=== PATIENT | male | born 1960 | race Caucasian/White ===

== ENCOUNTER 2017-01-04 00:54 | Observation (INO) | payer OTHER ==
[2017-01-04 01:17] VITALS: PULSE 92; TEMP 98.3; BMI 22.6
--- NOTE | 2017-01-04 01:34 | PDOC ---
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 Patient states that he was walking across his living room with a cane began to feel dizzy and passed out. States he believes he was unresponsive for several minutes was on the floor crawl to a phone and called 911. Patient states this did not feel like a seizure to him. He had no aura was no tongue biting and no incontinence does not know why he passed out. 01/04/17 04:46 - Physicial Exam PE: 01/04/17 04:43 Vitals: Triage Vital signs reviewed General Appearance: no acute distress, well nourished well developed, Head: Hematoma to left parietal lobe Eyes: Pupils equal reactive round, extraocular movement intact Neck: Supple;No Nucal rigidity Chest Wall: Nontender Cardiac: Regular rate and rhythym, no murmurs, no rubs, no gallops, Lungs: Clear to auscultation bilateral, good air movement bilaterally, Abdomen: Soft, non distended, normal bowel sounds, non tender to palpation Extremities: Full range of motion to all extremities, no cyanosis, clubbing, or edema Skin: Warm and dry, no rashes or lesions, no rash, no petechiae Neuro: AOX3; Cranial Nerves 2-12 grossly intact, left sided hemiparesis, Sensation intact to all extremities, Psych: normal mood, normal affect - Medical Decision Making 01/04/17 04:46 Patient with episode of syncope versus seizure. Unclear. We will CT had labs and reassess CT unchanged from prior lab work grossly unremarkable Will observe for further evaluation of sicca fever seizure
--- NOTE | 2017-01-04 01:51 | PDOC ---
History of Present Illness - General Chief Complaint: Shortness of Breath Stated Complaint: SOB Time Seen by Provider: 01/04/17 01:17 - History of Present Illness Initial Comments: 01/04/17 01:43 56 yo M with h/o seizure disorder, CVA with baseline left sided weakness, and HLD who arrives via EMS with complaint of seizure. States that he was walking around his front room drinking coffee 30 minutes [employer] and lost consciousness. He attributes his LOC to seizures although the event was unwitnessed as patient lives at home alone. Reports hitting back of head on floor and being unconsious for 2-3 minutes. Denies loss of bladder control, but endorses weakness upon regaining consciousness.Endorses right shoulder pain and posterior headache. No h/o of LOC. Endorses SOB. Denies fevers/chills, diaphoresis, dizziness, N/V, vision changes, chest pain, abdominal, or urinary complaints. Denies alcohol intake today. Drinks 2 6 packs per month. Tobacco use 1 PPD for 20+ years. Denies illicit drug use. Requests Keppra. States that he takes Keppra 250 mg PO QD but has ran out of pills today. Past History - Past Medical History Allergies/Adverse Reactions: Allergies Allergy/AdvReac Type Severity Reaction Status Date / Time No Known Allergies Allergy Verified 01/04/17 01:17 Home Medications: Ambulatory Orders Levetiracetam [Keppra -] 750 mg PO BID #60 tablet 07/29/14 Oxycodone HCl 10 mg PO TID PRN #6 tablet MDD 3 01/21/16 Zolpidem Tartrate [Ambien] 10 mg PO HS 01/21/16 Aspirin [ASA -] 81 mg PO DAILY 01/04/17 Anemia: No Asthma: No Cancer: No Cardiac Disorders: No CVA: Yes (LT SIDE WEAKNESS) COPD: No CHF: No Dementia: No Diabetes: No GI Disorders: No Disorders: No HTN: No Hypercholesterolemia: No Liver Disease: No Seizures: Yes Thyroid Disease: No - Surgical History Abdominal Surgery: Yes (UNKNOWN SX.) Appendectomy: No Cardiac Surgery: No Cholecystectomy: No Lung Surgery: No Neurologic Surgery: No Orthopedic Surgery: Yes (Right hand surgery) - Immunization History Immunization Up to Date: No - Suicide/Smoking/Psychosocial Hx Smoking Status: Yes Smoking History: Never smoked Have you smoked in the past 12 months: Yes Number of Cigarettes Smoked Daily: 15 Information on smoking cessation initiated: No 'Breaking Loose' booklet given: 03/25/14 Hx Alcohol Use: No Drug/Substance Use Hx: No Substance Use Type: Alcohol Hx Substance Use Treatment: No Review of Systems - Review of Systems Comments:: 01/04/17 02:25 GENERAL/CONSTITUTIONAL: No fever or chills. No weakness. HEAD, EYES, EARS, NOSE AND THROAT: No change in vision. No ear pain or discharge. No sore throat.- CARDIOVASCULAR: + shortness of breath. No chest pain RESPIRATORY: No cough, wheezing, or hemoptysis. GASTROINTESTINAL: No nausea, vomiting, diarrhea or constipation. GENITOURINARY: No dysuria, frequency, or change in urination. MUSCULOSKELETAL: No joint or muscle swelling or pain. No neck or back pain. SKIN: No rash NEUROLOGIC: +headache and loss of consciousness. No vertigo, or change in strength/sensation. ENDOCRINE: No increased thirst. No abnormal weight change HEMATOLOGIC/LYMPHATIC: No anemia, easy bleeding, or history of blood clots. ALLERGIC/IMMUNOLOGIC: No hives or skin allergy. *Physical Exam - Vital Signs Last Vital Signs Temp Pulse Resp BP Pulse Ox 98.3 F 92 H 20 121/98 96 01/04/17 01:13 01/04/17 01:13 01/04/17 01:13 01/04/17 01:13 01/04/17 01:13 - Physical Exam Comments: 01/04/17 02:26 GENERAL: left sided facial asymmetry. Awake, alert, and fully oriented, in no acute distress. Patient crying on encounter. HEAD: No signs of trauma, normocephalic, atraumatic EYES: PERRLA, EOMI, sclera anicteric, conjunctiva clear ENT: Auricles normal inspection, hearing grossly normal, nares patent, oropharynx clear without exudates. Moist mucosa NECK: Normal ROM, supple, no lymphadenopathy, JVD, or masses LUNGS: No distress, speaks full sentences, clear to auscultation bilaterally HEART: Regular rate and rhythm, normal S1 and S2, no murmurs, rubs or gallops, peripheral pulses normal and equal bilaterally. ABDOMEN: Soft, nontender, normoactive bowel sounds. No guarding, no rebound. No masses EXTREMITIES : Left arm contracted/fixed in flexed and internal rotation position. Normal inspection, Normal range of motion, no edema. No clubbing or cyanosis. Strengh 4/5 BL LE. 4/5 RUE, and 3/5 LUE. NEUROLOGICAL: Cranial nerves II through XII grossly intact. Normal speech. SKIN: Warm, Dry, normal turgor, no rashes or lesions noted. ED Treatment Course - LABORATORY CBC & Chemistry Diagram: 01/04/17 02:00 01/04/17 02:00 - RADIOLOGY Radiology Studies Ordered: Category Date Time Status CXRPORT [CHEST X-RAY PORTABLE*] [RAD] Stat Radiology 01/04/17 01:41 Ordered Medical Decision Making - Medical Decision Making 01/04/17 02:30 56 yo M with h/o seizure disorder, CVA with baseline left sided weakness, and HLD who arrives via EMS with syncopal event 30 minutes [employer] . Patient is poor historian and fall was unwitnessed. Reports hitting back of head on floor and being unconscious for 2-3 minutes. Denies loss of bladder control, but endorses weakness upon regaining consciousness. Now complains of right shoulder pain and posterior headache. No h/o of syncope and patient has poor outpatient follow up. Denies symptoms to suggest vasovagal event. Physical exam with baseline LUE weakness ,and left sided facial asymmetry. Denies alcohol intake today. Consider cardiac cause of syncopal event in setting of abrupt syncope and cardiac risk factors. ED Course: CBC, CMP, UA, Trop, Cardiac Profile, Lactic acid EKG, CXR, R Shoulder RAD, CT HEAD NON CON Keppra 250 mg 01/04/17 04:34 R Shoulder RAD: Absent evidence of dislocation or fracture 01/04/17 04:38 Lactic acid 1.4 01/04/17 04:44 Urine: Trace ketones. 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
[2017-01-04] MEDS ORDERED: levETIRAcetam 250 MG TABLET (FP) PO ONE (02:00)
[2017-01-04] MEDS ORDERED: levETIRAcetam 500 MG TABLET (FP) PO ONE (02:08)
[2017-01-04 02:38] LABS: URINE APPEARANCE SLCLOUDY; URINE BILIRUBIN NEGATIVE (NEGATIVE); URINE BLOOD NEGATIVE (NEGATIVE); URINE GLUCOSE (UA) NEGATIVE (NEGATIVE); URINE KETONE TRACE (NEGATIVE); URINE NITRITE NEGATIVE (NEGATIVE); URINE PROTEIN NEGATIVE (NEGATIVE)
[2017-01-04 03:25] LABS: URINE COLOR YELLOW
[2017-01-04] MEDS ORDERED: KETOROLAC TROMETHAMINE 30 MG/1 ML VIAL IVPUSH ONE (03:38)
[2017-01-04] MEDS ORDERED: KETOROLAC TROMETHAMINE 30 MG/1 ML VIAL ONE (03:40)
[2017-01-04 04:34] LABS: BASOPHIL 1.2 % (0-2.0); EOSINOPHIL 0.3 % (0-4.5); MCH 30.9 pg (25.7-33.7); MCHC 33.4 g/dl (32.0-35.9); MEAN CELL VOLUME 92.7 fl (80-96); NEUTROPHILS 85.7 % (42.8-82.8); PLATELET COUNT 237 K/MM3 (134-434); RDW 13.8 % (11.9-15.9); WHITE BLOOD COUNT 17.5 K/mm3 (4.0-10.0)
[2017-01-04] MEDS ORDERED: SODIUM CHLORIDE 1,000 ML IV STA (04:45)
[2017-01-04 04:47] LABS: INR 0.98 (0.82-1.09); PROTHROMBIN TIME (PATIENT) 11.1 SEC (9.98-11.88)
[2017-01-04 04:58] VITALS: BP 169/99
[2017-01-04 05:31] LABS: ALBUMIN 4.3 g/dl (3.4-5.0); ANION GAP 9 (8-16); BILIRUBIN,TOTAL 0.3 mg/dL (0.2-1.0); CALCIUM 8.6 mg/dL (8.5-10.1); CO2 27 mmol/L (21-32); CREATININE 0.9 mg/dL (0.7-1.3); GLUCOSE,RANDOM 101 mg/dL (74-106); SGPT/ALT 32 U/L (12-78); TOT PROT 7.8 g/dl (6.4-8.2)
[2017-01-04 05:34] LABS: ALK PHOS 92 U/L (45-117)
[2017-01-04 05:39] LABS: SGOT/AST 20 U/L (15-37)
[2017-01-04 05:40] LABS: CPK 87 IU/L (39-308); TROPONIN I < 0.02 ng/ml (0.00-0.05)
[2017-01-04] MEDS ORDERED: NICOTINE 7 MG/24 HOURS TOPICAL PATCH TD ONE (05:58)
[2017-01-04] MEDS ORDERED: ACETAMINOPHEN 325 MG TABLET (FP) PO PRN (06:01)
[2017-01-04] MEDS ORDERED: NICOTINE 14 MG/24 HOURS TOPICAL PATCH TD ONE (06:10)
--- NOTE | 2017-01-04 07:15 | PDOC ---
*Physical Exam - Vital Signs Last Vital Signs Temp Pulse Resp BP Pulse Ox 98.3 F 92 H 20 169/99 96 01/04/17 01:13 01/04/17 01:13 01/04/17 01:13 01/04/17 04:49 01/04/17 05:13 ED Treatment Course - LABORATORY CBC & Chemistry Diagram: 01/04/17 08:20 01/04/17 08:20 - ADDITIONAL ORDERS Additional order review: Laboratory Results 01/04/17 01/04/17 01/04/17 02:20 02:00 02:00 PT with INR INR Sodium Potassium Chloride Carbon Dioxide Anion Gap BUN Creatinine Creat Clearance w eGFR Random Glucose Lactic Acid 1.4 Calcium Total Bilirubin AST ALT Alkaline Phosphatase Creatine Kinase Troponin I B-Natriuretic Peptide 35.04 Total Protein Albumin Urine Color Yellow Urine Appearance Slcloudy Urine pH 5.0 Ur Specific [place] 1.024 Urine Protein Negative Urine Glucose (UA) Negative Urine Ketones Trace H Urine Blood Negative Urine Nitrite Negative Urine Bilirubin Negative Urine Urobilinogen 2.0 01/04/17 01/04/17 01/04/17 02:00 02:00 02:00 PT with INR 11.10 INR 0.98 Sodium 140 Potassium 4.1 D Chloride 104 Carbon Dioxide 27 Anion Gap 9 BUN 9 D Creatinine 0.9 D Creat Clearance w eGFR > 60 Random Glucose 101 Lactic Acid Calcium 8.6 Total Bilirubin 0.3 D AST 20 D ALT 32 Alkaline Phosphatase 92 Creatine Kinase 87 Troponin I < 0.02 B-Natriuretic Peptide Total Protein 7.8 Albumin 4.3 Urine Color Urine Appearance Urine pH Ur Specific [place] Urine Protein Urine Glucose (UA) Urine Ketones Urine Blood Urine Nitrite Urine Bilirubin Urine Urobilinogen 01/04/17 02:00 RBC 4.88 MCV 92.7 MCHC 33.4 RDW 13.8 MPV 10.0 D Neutrophils % 85.7 H D Lymphocytes % 7.5 L D Monocytes % 5.3 Eosinophils % 0.3 D Basophils % 1.2 - Medications Given in the ED: ED Medications Discontinued Medications Generic Name Dose Route Start Last Admin Trade Name Freq PRN Reason Stop Dose Admin Sodium Chloride 1,000 mls @ 1,000 mls/hr 01/04/17 04:45 01/04/17 04:49 Normal Saline - IV 01/04/17 05:44 1,000 mls/hr ASDIR STA Administration Ketorolac Tromethamine 30 mg 01/04/17 03:38 01/04/17 03:44 Toradol Injection - IVPUSH 01/04/17 03:39 30 mg ONCE ONE Administration Levetiracetam 250 mg 01/04/17 02:00 01/04/17 02:08 Keppra - PO 01/04/17 02:01 250 mg ONCE ONE Administration Nicotine 7 mg 01/04/17 05:58 01/04/17 06:16 Nicoderm Patch - TD 01/04/17 05:59 Not Given ONCE ONE Nicotine 14 mg 01/04/17 06:10 01/04/17 06:16 Nicoderm Patch - TD 01/04/17 06:11 14 mg ONCE ONE Administration Medical Decision Making - Medical Decision Making 01/04/17 07:11 Patient signed out by Dr. Patel (Resident) and Dr. Vale (Attending). Patient is a 56 y.o. male who had an unwitnessed syncopal episode at home. Patient to be admitted for further evaluation, awaiting return of hospitalist page. 01/04/17 07:34 Patient admitted for observation to Dr. Rehman however patient stated he wished to leave AMA. Patient counseled extensively on risks and benefits of discharge including the risk of repeat falls and possible associated head trauma /LOC. Patient declined physical examination and discharged AMA. *DC/Admit/Observation/Transfer Diagnosis at time of Disposition: Syncope - Discharge Dispostion Disposition: AGAINST MEDICAL ADVICE Condition at time of disposition: Fair
[2017-01-04 08:40] LABS: BASOPHIL 0.8 % (0-2.0); EOSINOPHIL 1.5 % (0-4.5); MCH 30.4 pg (25.7-33.7); MCHC 32.6 g/dl (32.0-35.9); MEAN CELL VOLUME 93.2 fl (80-96); MEAN PLT VOLUME 8.9 fl (7.5-11.1); NEUTROPHILS 70.5 % (42.8-82.8); PLATELET COUNT 229 K/MM3 (134-434)
[2017-01-04 08:57] LABS: ALBUMIN 4.2 g/dl (3.4-5.0); ANION GAP 4 (8-16); BILIRUBIN,TOTAL 0.4 mg/dL (0.2-1.0); CALCIUM 8.5 mg/dL (8.5-10.1); CO2 31 mmol/L (21-32); GLUCOSE,RANDOM 72 mg/dL (74-106); MAGNESIUM 2.2 mg/dL (1.8-2.4); PHOSPHOROUS 4.1 mg/dL (2.5-4.9); SGOT/AST 11 U/L (15-37); SGPT/ALT 29 U/L (12-78); TOT PROT 7.4 g/dl (6.4-8.2)
[2017-01-04 09:05] LABS: ALK PHOS 89 U/L (45-117); THYROID STIMULATING HORMONE 1.51 uIU/ml (0.358-3.74); TROPONIN I < 0.02 ng/ml (0.00-0.05)
[2017-01-04 09:19] LABS: URINE LEUK ESTERASE Negative (NEGATIVE)
[2017-01-04] MEDS ORDERED: levETIRAcetam 250 MG TABLET (FP) PO SCH (10:00)
--- NOTE | 2017-01-04 14:14 | EKG ---
Test Reason : Blood Pressure : / mmHG Vent. Rate : 079 BPM Atrial Rate : 079 BPM P-R Int : 146 ms QRS Dur : 094 ms QT Int : 380 ms P-R-T Axes : 061 054 052 degrees QTc Int : 435 ms NORMAL SINUS RHYTHM NORMAL ECG WHEN COMPARED WITH ECG OF 29-JUL-2014 12:16, NO SIGNIFICANT CHANGE WAS FOUND REPEAT EKG IF CLINICALLY INDICATED Confirmed by BETSY GALLOWAY MD ([id number]) on 01/04/2017 2:14:25 PM Referred By: Confirmed By:BETSY GALLOWAY MD
--- NOTE | 2017-01-04 16:43 | HOSP ---
Subjective - Review of Symptoms Events since last encounter: Patient was placed on Observation by the Night resident, patient signed AMA prior being seen by anybody from the group. Patient signed AMA from the ED. department. Physical Examination Vital Signs: Vital Signs Temperature 98.3 F 01/04/17 01:13 Pulse Rate 92 H 01/04/17 01:13 Respiratory Rate 20 01/04/17 01:13 Blood Pressure 169/99 01/04/17 04:49 O2 Sat by Pulse Oximetry (%) 96 01/04/17 05:13 Labs: CBC, BMP 01/04/17 08:20 01/04/17 08:20
== END 2017-01-04 08:36 | disposition left against medical advice (07) ==
LOC: JER 00:54 → JERBED 07:32
PROVIDERS: ADMIT Internal Medicine; ATTEND Internal Medicine
PROC: 3E0333Z Introduction of Anti-inflammatory into Peripheral Vein, Percutaneous Approach (ICD-10-PCS; principal; 2017-01-04)
PROC: 3E0337Z Introduction of Electrolytic and Water Balance Substance into Peripheral Vein, Percutaneous Approach (ICD-10-PCS; 2017-01-04)
DX: R55 Syncope and collapse (principal); G40.909 Epilepsy, unspecified, not intractable, without status epilepticus; I69.351 Hemiplegia and hemiparesis following cerebral infarction affecting right dominant side; F17.210 Nicotine dependence, cigarettes, uncomplicated; E78.5 Hyperlipidemia, unspecified; Z91.14 Patient's other noncompliance with medication regimen
CPT/HCPCS: 36415; 70450-TC; 71010-TC; 73030-TC-RT; 80053; 81003; 82550; 83605; 83735; 83880; 84100; 84439; 84443; 84484; 85025; 85610; 93005; 93010; 96361; 96374; 99283-25; G0378

== ENCOUNTER 2017-01-06 10:30 | Emergency (ER) | payer OTHER ==
[2017-01-06 10:43] VITALS: TEMP 98.2; BMI 25.8
[2017-01-06] MEDS ORDERED: levETIRAcetam 500 MG TABLET (FP) PO ONE ×2 (13:00→13:02)
--- NOTE | 2017-01-06 13:32 | PDOC ---
History of Present Illness - General Chief Complaint: Lightheaded Stated Complaint: RX REFILL Time Seen by Provider: 01/06/17 12:41 History Source: Patient Exam Limitations: No Limitations - History of Present Illness Initial Comments: 01/06/17 13:28 56-year-old male with history of left CVA residual and seizure activity presents to the ED for refills of his Keppra. Patient states on Tuesday he was seen here since he had a syncopal episode but signed out AMA but was not given a prescription for his Keppra's was not had it since Tuesday. Patient states is followed by Dr. Colette Robin at [facility] and has an appointment with her. patient currently has no complaints including headache, visual changes, lightheadedness, chest pain, shortness of breath, or nausea. Associated Symptoms: reports: denies symptoms Past History - Travel Traveled outside of the country in the last 30 days: No - Past Medical History Allergies/Adverse Reactions: Allergies Allergy/AdvReac Type Severity Reaction Status Date / Time No Known Allergies Allergy Verified 01/06/17 10:44 Home Medications: Ambulatory Orders Levetiracetam [Keppra -] 750 mg PO BID #60 tablet 07/29/14 Aspirin [ASA -] 81 mg PO DAILY 01/04/17 Anemia: No Asthma: No Cancer: No Cardiac Disorders: No CVA: Yes (LT SIDE WEAKNESS) COPD: No CHF: No Dementia: No Diabetes: No GI Disorders: No Disorders: No HTN: No Hypercholesterolemia: No Liver Disease: No Seizures: Yes Thyroid Disease: No - Surgical History Abdominal Surgery: Yes (UNKNOWN SX.) Appendectomy: No Cardiac Surgery: No Cholecystectomy: No Lung Surgery: No Neurologic Surgery: No Orthopedic Surgery: Yes (Right hand surgery) - Immunization History Immunization Up to Date: No - Suicide/Smoking/Psychosocial Hx Smoking Status: Yes Smoking History: Current every day smoker Have you smoked in the past 12 months: Yes Number of Cigarettes Smoked Daily: 10 Information on smoking cessation initiated: No 'Breaking Loose' booklet given: 03/25/14 Hx Alcohol Use: No Drug/Substance Use Hx: No Substance Use Type: Alcohol Hx Substance Use Treatment: No Patient Lives Alone: Yes Lives with/in: lives alone Review of Systems - Review of Systems Able to Perform ROS?: Yes Constitutional: No: Symptoms Reported HEENTM: No: Symptoms Reported Respiratory: No: Symptoms reported Cardiac (ROS): No: Symptoms Reported ABD/GI: No: Symptoms Reported : No: Symptoms Reported Musculoskeletal: No: Symptoms Reported Integumentary: No: Symptoms Reported Neurological: No: Symptoms reported *Physical Exam - Vital Signs Last Vital Signs Temp Pulse Resp BP Pulse Ox 98.2 F 80 18 157/88 98 01/06/17 10:41 01/06/17 10:41 01/06/17 10:41 01/06/17 10:41 01/06/17 10:41 - Physical Exam General Appearance: Yes: Nourished, Appropriately Dressed. No: Apparent Distress HEENT: positive: CLIF Neck: positive: Supple. negative: Tender, Decreased range of motion Respiratory/Chest: positive: Lungs Clear, Normal Breath Sounds. negative: Chest Tender, Respiratory Distress, Accessory Muscle Use Cardiovascular: positive: Regular Rhythm, Regular Rate. negative: Murmur Gastrointestinal/Abdominal: positive: Soft. negative: Tenderness Extremity: negative: Pedal Edema Integumentary: positive: Normal Color, Dry, Warm Neurologic: positive: Normal Mood/Affect, Motor Strength 5/5 (ambulatory with cane) ED Treatment Course - Medications Given in the ED: ED Medications Discontinued Medications Generic Name Dose Route Start Last Admin Trade Name Freq PRN Reason Stop Dose Admin Levetiracetam 1,000 mg 01/06/17 13:00 01/06/17 13:09 Keppra - PO 01/06/17 13:01 1,000 mg ONCE ONE Administration Medical Decision Making - Medical Decision Making 01/06/17 13:32 Patient here for A refill. Patient was seen here on the but signed AMA for syncopal episode. When questioned about visit and recently AMA and he said he did not want to discuss it and is just here for Keppra Refill. 01/06/17 13:33 Patient be loaded with 1 g of Keppra due to noncompliance and inconsistency of dosing. Patient requesting to eat patient given lunch tray. Called to [facility] to speak with the clinic and verify appointment. Called and spoke to normally done but nurse at [facility] [place] JEMIMA agarwal and states patient does have an appointment on 01/14 at 10:45 AM. *DC/Admit/Observation/Transfer Diagnosis at time of Disposition: Encounter for medication refill - Discharge Dispostion Disposition: HOME Condition at time of disposition: Good - Referrals Referrals: Colette Nunez MD [Primary Care Provider] - - Patient Instructions Printed Discharge Instructions: DI for Seizure Disorder -- Adult Additional Instructions: Please follow-up with your doctor on January 14 at 10:45 AM as scheduled. Next and please continue to take her Keppra as prescribed 250 mg twice a day starting tomorrow since your given your first dose and loaded with a gram of Keppra today. Return to ED if you develop any headache, dizziness, chest pain or shortness of breath.
[2017-01-06 13:50] VITALS: BP 158/88; PULSE 68
== END 2017-01-06 13:51 | disposition home or self-care (01) ==
LOC: JERFT 10:30 → JER 10:30
DX: G40.909 Epilepsy, unspecified, not intractable, without status epilepticus (principal); I69.854 Hemiplegia and hemiparesis following other cerebrovascular disease affecting left non-dominant side; F17.210 Nicotine dependence, cigarettes, uncomplicated
CPT/HCPCS: 99282-25

== ENCOUNTER 2017-02-13 11:49 | Emergency (ER) | payer OTHER ==
--- NOTE | 2017-02-13 12:02 | PDOC ---
History of Present Illness - General Stated Complaint: SEIZURE Time Seen by Provider: 02/13/17 12:00 - History of Present Illness Initial Comments: 02/13/17 12:03 Mr. Whitaker is a 57 yo male w/ pmh seizure disorder, CVA w/ left sided weakness at baseline, and HLD who presents after seizure. Per EMS the patient reported feeling like he would have a seizure and went to knock on his neighbor's door but started seizing in the doorway when the door opened. Mr. Whitaker reports he ran out of his keppra 3 days ago. He normally take 750mg of keppra BID. He currently feels fine and has no complaints. Mr. Whitaker reports he is without a PCP or neurologist. The patient denies chest pain, shortness of breath, headache and dizziness. Denies fever, chills, nausea, vomit, diarrhea and constipation. Denies dysuria, frequency, urgency and hematuria. Allergies: NKDA Past History - Past Medical History Allergies/Adverse Reactions: Allergies Allergy/AdvReac Type Severity Reaction Status Date / Time No Known Allergies Allergy Verified 02/13/17 12:01 Home Medications: Ambulatory Orders Levetiracetam [Keppra -] 750 mg PO BID #60 tablet 07/29/14 Levetiracetam [Keppra -] 750 mg PO BID #60 tablet 02/13/17 Anemia: No Asthma: No Cancer: No Cardiac Disorders: No CVA: Yes (LT SIDE WEAKNESS) COPD: No CHF: No Dementia: No Diabetes: No GI Disorders: No Disorders: No HTN: No Hypercholesterolemia: No Liver Disease: No Seizures: Yes Thyroid Disease: No - Surgical History Abdominal Surgery: Yes (UNKNOWN SX.) Appendectomy: No Cardiac Surgery: No Cholecystectomy: No Lung Surgery: No Neurologic Surgery: No Orthopedic Surgery: Yes (Right hand surgery) - Immunization History Immunization Up to Date: No - Suicide/Smoking/Psychosocial Hx Smoking Status: Yes Smoking History: Current every day smoker Have you smoked in the past 12 months: Yes Number of Cigarettes Smoked Daily: 10 'Breaking Loose' booklet given: 03/25/14 Hx Alcohol Use: No Drug/Substance Use Hx: No Substance Use Type: Alcohol Hx Substance Use Treatment: No Review of Systems - Review of Systems Comments:: 02/13/17 12:22 GENERAL/CONSTITUTIONAL: No fever or chills. No weakness. HEAD, EYES, EARS, NOSE AND THROAT: No change in vision. No ear pain or discharge. No sore throat. CARDIOVASCULAR: No chest pain or shortness of breath RESPIRATORY: No cough, wheezing, or hemoptysis. GASTROINTESTINAL: No nausea, vomiting, diarrhea or constipation. GENITOURINARY: No dysuria, frequency, or change in urination. MUSCULOSKELETAL: No joint or muscle swelling or pain. No neck or back pain. SKIN: No rash NEUROLOGIC: +Seizure prodrome earlier today before reported generalized seizure. ENDOCRINE: No increased thirst. No abnormal weight change HEMATOLOGIC/LYMPHATIC: No anemia, easy bleeding, or history of blood clots. ALLERGIC/IMMUNOLOGIC: No hives or skin allergy. *Physical Exam - Physical Exam Comments: 02/13/17 12:22 GENERAL: Awake, alert, and fully oriented, in no acute distress HEAD: No signs of trauma, normocephalic, atraumatic EYES: PERRLA, EOMI, sclera anicteric, conjunctiva clear ENT: Auricles normal inspection, hearing grossly normal, nares patent, oropharynx clear without exudates. Moist mucosa NECK: Normal ROM, supple, no lymphadenopathy, JVD, or masses LUNGS: No distress, speaks full sentences, clear to auscultation bilaterally HEART: Regular rate and rhythm, normal S1 and S2, no murmurs, rubs or gallops, peripheral pulses normal and equal bilaterally. ABDOMEN: Soft, nontender, normoactive bowel sounds. No guarding, no rebound. No masses EXTREMITIES: Normal inspection, Normal range of motion, no edema. No clubbing or cyanosis. NEUROLOGICAL: Cranial nerves II through XII grossly intact. Normal speech, no focal sensorimotor deficits SKIN: Warm, Dry, normal turgor, no rashes or lesions noted. 02/13/17 15:19 ED Treatment Course - LABORATORY CBC & Chemistry Diagram: 02/13/17 13:32 02/13/17 13:32 Medical Decision Making - Medical Decision Making 02/13/17 12:23 Mr. Whitaker presents post seizure after going w/out seizure medications for 3 days. Will load with keppra and observe to ensure no further seizures. 02/13/17 13:49 Patient reports no associated symptoms w/ seizure, no fever, no chills, no other neurological sequelae. 02/13/17 14:34 Patient remains seizure free at baseline with labs grossly wnl as below. Will d/ c to home with f/u information for neurology as well as new Rx for Keppra until patient is able to make appt. 02/13/17 14:46 Patient able to ambulate and successfully passed PO challenge. Reports he is ready to go home. 1 month script sent. Discharging. *DC/Admit/Observation/Transfer Diagnosis at time of Disposition: Seizure - Discharge Dispostion Disposition: HOME - Prescriptions Prescriptions: Levetiracetam [Keppra -] 750 mg PO BID #60 tablet - Referrals Referrals: Lonnie Varma MD [Staff Physician] - - Patient Instructions Printed Discharge Instructions: DI for Seizure Disorder -- Adult Additional Instructions: Please return if any increase in pain, headache, altered mental status, or any other concerning symptoms. - Post Discharge Activity
[2017-02-13 12:05] VITALS: TEMP 98.1; BMI 25.8
[2017-02-13] MEDS ORDERED: levETIRAcetam 500 MG/5 ML INJECTION VIAL IVPB ONE ×2 (12:32→12:47)
[2017-02-13] MEDS ORDERED: IBUPROFEN 400 MG TABLET (FP) PO ONE ×2 (13:14→13:30)
[2017-02-13 13:44] LABS: BASOPHIL 0.1 % (0-2.0); EOSINOPHIL 0.4 % (0-4.5); MCH 30.5 pg (25.7-33.7); MCHC 32.9 g/dl (32.0-35.9); MEAN CELL VOLUME 92.6 fl (80-96); MEAN PLT VOLUME 8.5 fl (7.5-11.1); NEUTROPHILS 88.4 % (42.8-82.8); PLATELET COUNT 243 K/MM3 (134-434); RDW 13.7 % (11.9-15.9)
[2017-02-13 14:09] LABS: ALBUMIN 4.1 g/dl (3.4-5.0); ALK PHOS 112 U/L (45-117); ANION GAP 9 (8-16); BILIRUBIN,TOTAL 0.3 mg/dL (0.2-1.0); CALCIUM 9.3 mg/dL (8.5-10.1); CO2 27 mmol/L (21-32); CREATININE 0.9 mg/dL (0.7-1.3); GLUCOSE,RANDOM 90 mg/dL (74-106); SGOT/AST 24 U/L (15-37); SGPT/ALT 36 U/L (12-78); TOT PROT 7.6 g/dl (6.4-8.2)
--- NOTE | 2017-02-13 14:15 | PDOC ---
Attending Attestation - Resident Resident Name: Adair Whitaker - ED Attending Attestation I have performed the following: I have examined & evaluated the patient, The case was reviewed & discussed with the resident, I agree w/resident's findings & plan, Exceptions are as noted - HPI HPI: 02/13/17 14:12 57-year-old male history of seizure disorder here today complaining of seizure states he hasn't taken his meds because he ran out. Patient went to his neighbor 's house as he felt a seizure coming on instantly had a seizure in the doorway witnessed by his neighbor called EMS currently feels he is back at his baseline does have a prior history of a CVA with residual left-sided weakness no new weakness no fevers chills no other current complaints hasn't taken his meds for some time - Physicial Exam PE: 02/13/17 14:14 Awake alert no acute distress lungs are clear bilaterally heart is regular no murmurs rubs or gallops abdomen is soft and nontender skin is warm and dry neuro patient is alert and oriented 3 moves all 4 extremities currently at baseline strength - Medical Decision Making 02/13/17 14:14 Seizure likely secondary to medication noncompliance. Plan basic labs will given IV load of Keppra and likely outpatient follow-up neurology
[2017-02-13 15:24] VITALS: BP 132/78; PULSE 68
== END 2017-02-13 15:31 | disposition home or self-care (01) ==
LOC: JER 11:49
PROC: 3E033GC Introduction of Other Therapeutic Substance into Peripheral Vein, Percutaneous Approach (ICD-10-PCS; principal; 2017-02-13)
DX: R56.9 Unspecified convulsions (principal); E78.5 Hyperlipidemia, unspecified; Z86.73 Personal history of transient ischemic attack (TIA), and cerebral infarction without residual deficits; F17.210 Nicotine dependence, cigarettes, uncomplicated
CPT/HCPCS: 36415; 80053; 85025; 96374; 99282-25

== ENCOUNTER 2017-03-17 08:36 | Emergency (ER) | payer OTHER ==
[2017-03-17] MEDS ORDERED: chlordiazePOXIDE HCL 25 MG CAPSULE PO ONE (09:05)
[2017-03-17] MEDS ORDERED: levETIRAcetam 500 MG TABLET (FP) PO ONE ×2 (09:06→09:13)
[2017-03-17] MEDS ORDERED: levETIRAcetam 250 MG TABLET (FP) PO ONE (09:07)
[2017-03-17] MEDS ORDERED: chlordiazePOXIDE HCL 25 MG CAPSULE ONE (09:12)
[2017-03-17 09:17] VITALS: BMI 26.6
[2017-03-17 09:28] LABS: BASO % 0.5 % (0-2.0); EOS % 2.2 % (0-4.5); HEMATOCRIT 45.5 % (35.4-49); HEMOGLOBIN 14.9 GM/dL (11.7-16.9); LYMPH % 18.8 % (8-40); MCH 30.5 pg (25.7-33.7); MCHC 32.7 g/dl (32.0-35.9); MEAN CELL VOLUME 93.2 fl (80-96); MEAN PLT VOLUME 7.8 fl (7.5-11.1); MONO % 5.6 % (3.8-10.2); NEUT % 72.9 % (42.8-82.8); PLATELET COUNT 262 K/MM3 (134-434); RBC 4.88 M/mm3 (4.00-5.60); WHITE BLOOD COUNT 9.1 K/mm3 (4.0-10.0)
--- NOTE | 2017-03-17 09:44 | PDOC ---
History of Present Illness - General Chief Complaint: Seizure Stated Complaint: SEIZURE Time Seen by Provider: 03/17/17 09:01 History Source: Patient Exam Limitations: No Limitations - History of Present Illness Initial Comments: 03/17/17 09:18 Patient is a 57 y/o male with history of seizures, denies ay other medical history. On Keppra, was given his last prescription in the ER on 02/14. Has run out of medication. Was BIBA today reporting that he had a seizure at 3: 30am after drinking. Was unwitnessed. Ran out of medication yesterday, requesting a refill and food upon arrival. Denies headache, no CP or SOB. No n/ v/d . Allergies: No known allergies Medications: [Keppra] Family History: Non-contributory Social History: 1PPD, Daily ETOH use, denies IVDU Vital signs on arrival are [notable for pulse of 76.] Review of Systems GENERAL/CONSTITUTIONAL: [No fever or chills. No weakness. No weight change.] HEAD, EYES, EARS, NOSE AND THROAT: [No change in vision. No ear pain or discharge. No sore throat. ] CARDIOVASCULAR: [No chest pain or shortness of breath.] RESPIRATORY: [No cough, wheezing, or hemoptysis.] GASTROINTESTINAL: [No nausea, vomiting, diarrhea or constipation. No rectal bleeding.] GENITOURINARY: [No dysuria, frequency, or change in urination.] MUSCULOSKELETAL: [No joint or muscle swelling or pain. No neck or back pain.] SKIN : [No rash or easy bruising.] NEUROLOGIC: [No headache, vertigo, loss of consciousness, or loss of sensation.] PSYCHIATRIC: [No depression or anxiety.] Physical Exam: GENERAL: [The patient is awake, alert, and fully oriented, in no acute distress. ] HEAD: [Normal with no signs of trauma.] EYES: [Pupils equal, round and reactive to light, extraocular movements intact, sclera anicteric, conjunctiva clear.] ENT: [Ears normal, nares patent, oropharynx clear without exudates. Moist mucous membranes. No uvula deviation] NECK: [Normal range of motion, supple without lymphadenopathy, JVD, or masses.] LUNGS: [Breath sounds equal, clear to auscultation bilaterally. No wheezes, and no crackles.] HEART: [Regular rate and rhythm, normal S1 and S2 without murmur, rub or gallop. ] ABDOMEN: [Soft, nontender, normoactive bowel sounds. No guarding, no rebound. No masses. No bruising or abrasions] MUSCULOSKELETAL: [Normal range of motion, no edema. No clubbing or cyanosis. No cords, erythema, or tenderness. No CVA Tenderness with fist.] NEUROLOGICAL: [Cranial nerves II through XII grossly intact. Normal speech, normal gait.] SKIN: [Warm, Dry, normal turgor, no rashes or lesions noted.] 03/17/17 09:44 Past History - Past Medical History Allergies/Adverse Reactions: Allergies Allergy/AdvReac Type Severity Reaction Status Date / Time No Known Allergies Allergy Verified 02/13/17 12:01 Home Medications: Ambulatory Orders Levetiracetam [Keppra -] 750 mg PO BID #60 tablet 03/17/17 Anemia: No Asthma: No Cancer: No Cardiac Disorders: No CVA: Yes (LT SIDE WEAKNESS) COPD: No CHF: No Dementia: No Diabetes: No GI Disorders: No Disorders: No HTN: No Hypercholesterolemia: No Liver Disease: No Seizures: Yes Thyroid Disease: No - Surgical History Abdominal Surgery: Yes (UNKNOWN SX.) Appendectomy: No Cardiac Surgery: No Cholecystectomy: No Lung Surgery: No Neurologic Surgery: No Orthopedic Surgery: Yes (Right hand surgery) - Immunization History Immunization Up to Date: No - Suicide/Smoking/Psychosocial Hx Smoking Status: Yes Smoking History: Current every day smoker Have you smoked in the past 12 months: Yes Number of Cigarettes Smoked Daily: 20 Information on smoking cessation initiated: No 'Breaking Loose' booklet given: 03/25/14 Hx Alcohol Use: Yes Drug/Substance Use Hx: No Substance Use Type: Alcohol Hx Substance Use Treatment: No *Physical Exam - Vital Signs Last Vital Signs Temp Pulse Resp BP Pulse Ox 97.6 F 76 16 133/84 97 03/17/17 09:01 03/17/17 09:01 03/17/17 09:01 03/17/17 09:01 03/17/17 09:01 ED Treatment Course - LABORATORY CBC & Chemistry Diagram: 03/17/17 09:15 03/17/17 09:15 - Medications Given in the ED: ED Medications Discontinued Medications Generic Name Dose Route Start Last Admin Trade Name Freq PRN Reason Stop Dose Admin Chlordiazepoxide HCl 50 mg 03/17/17 09:05 03/17/17 09:13 Librium - PO 03/17/17 09:06 50 mg ONCE ONE Administration Levetiracetam 500 mg 03/17/17 09:06 03/17/17 09:13 Keppra - PO 03/17/17 09:07 500 mg ONCE ONE Administration Levetiracetam 250 mg 03/17/17 09:07 03/17/17 09:13 Keppra - PO 03/17/17 09:08 250 mg ONCE ONE Administration Medical Decision Making - Medical Decision Making 03/17/17 09:45 A/P: Patient here for requesting refill of his Keppra history of seizures reports having a seizure at 3 AM . Admits to drinking at 2 AM prior to seizure activity. Denies hitting his head. Was unwitnessed lives alone. Denies any or upon arrival, no headache, no nausea vomiting or dizziness. Plan: Saline lock CBC, CMP, cardiac enzymes Urine analysis Librium 50 mg by mouth 1 Keppra 750 mg by mouth 1 patient is requesting to eat food given states he feels well. 03/17/17 10:16 Laboratory Results - last 24 hr 03/17/17 03/17/17 09:15 09:15 WBC 9.1 D RBC 4.88 Hgb 14.9 Hct 45.5 MCV 93.2 MCH 30.5 MCHC 32.7 RDW 14.0 Plt Count 262 MPV 7.8 Neutrophils % 72.9 Lymphocytes % 18.8 D Monocytes % 5.6 Eosinophils % 2.2 D Basophils % 0.5 D Sodium 139 Potassium 4.5 Chloride 107 Carbon Dioxide 26 Anion Gap 6 L BUN 19 H D Creatinine 0.8 Creat Clearance w eGFR > 60 Random Glucose 91 Calcium 8.4 L Total Bilirubin 0.5 D AST 15 D ALT 24 D Alkaline Phosphatase 126 H Creatine Kinase 45 Troponin I < 0.02 Total Protein 7.4 Albumin 3.7 Patient is requesting to leave. States tht he feels well that he just wanted his medication. CBC reveals no anemia, leukocytosis, bandemia, lymphocytosis, or neutrophilia. Platelets are within normal values at this time. CMP reveals no electrolyte imbalance, there is no transaminitis, renal function demonstrate mild dehydration patient will increase fluid intake, there is no hyperbilirubinemia. Urinalysis reveals no urinary tract infection. Patient states he feels well, discharge patient home with strict instructions to follow-up with neurology and primary care doctor. Patient stable for discharge, denies any aura, confusion, chest pain or shortness of breath. I discussed the physical exam findings, ancillary test results and final diagnoses with the patient. I answered all of the patient's questions. The patient was satisfied with the care received and felt comfortable with the discharge plan and treatment plan. The patient will call to arrange follow-up and will return to the Emergency Department with any new, persistent or worsening symptoms. *DC/Admit/Observation/Transfer Diagnosis at time of Disposition: Seizure, Medication refill - Discharge Dispostion Disposition: HOME Condition at time of disposition: Stable Admit: No - Prescriptions Prescriptions: Levetiracetam [Keppra -] 750 mg PO BID #60 tablet - Referrals Referrals: Lonnie Varma MD [Staff Physician] - (PLease call to make a follow up appointment as soon as possible. ) [facility] [Provider Group] (Call to make appointment for Primary care doctor) - Patient Instructions Additional Instructions: I have supplied you with information regarding a neurologist and a primary care physician please call today upon discharge to make follow-up appointment. Least refrain from drinking alcohol. Your Keppra has been called into the pharmacy, please take your evening dose today. - Post Discharge Activity
[2017-03-17 09:53] LABS: ALBUMIN 3.7 g/dl (3.4-5.0); ANION GAP 6 (8-16); BILIRUBIN,TOTAL 0.5 mg/dL (0.2-1.0); BLOOD UREA NITROGEN 19 mg/dL (7-18); CALCIUM 8.4 mg/dL (8.5-10.1); CHLORIDE 107 mmol/L (98-107); CO2 26 mmol/L (21-32); CREATININE 0.8 mg/dL (0.7-1.3); GLUCOSE,RANDOM 91 mg/dL (74-106); POTASSIUM 4.5 mmol/L (3.5-5.1); SGOT/AST 15 U/L (15-37); SGPT/ALT 24 U/L (12-78); SODIUM 139 mmol/L (136-145); TOT PROT 7.4 g/dl (6.4-8.2)
[2017-03-17 09:55] LABS: ALK PHOS 126 U/L (45-117)
[2017-03-17 11:15] LABS: URINE APPEARANCE CLEAR; URINE BILIRUBIN NEGATIVE (NEGATIVE); URINE BLOOD NEGATIVE (NEGATIVE); URINE COLOR LTYELLOW; URINE GLUCOSE (UA) NEGATIVE (NEGATIVE); URINE KETONE NEGATIVE (NEGATIVE); URINE LEUK ESTERASE NEGATIVE (NEGATIVE); URINE NITRITE NEGATIVE (NEGATIVE); URINE PROTEIN NEGATIVE (NEGATIVE); URINE UROBILINOGEN NEGATIVE mg/dL (0.2-1.0)
[2017-03-17 11:52] VITALS: BP 125/79; PULSE 75; TEMP 98.6
== END 2017-03-17 11:52 | disposition home or self-care (01) ==
LOC: JER 08:36
DX: G40.909 Epilepsy, unspecified, not intractable, without status epilepticus (principal); G40.509 Epileptic seizures related to external causes, not intractable, without status epilepticus; Z76.0 Encounter for issue of repeat prescription
CPT/HCPCS: 36415; 80053; 81003; 82550; 84484; 85025; 99281-25

== ENCOUNTER 2017-04-25 08:23 | Emergency (ER) | payer OTHER ==
[2017-04-25 08:36] VITALS: BP 136/78; PULSE 88; TEMP 98; BMI 27.4
[2017-04-25] MEDS ORDERED: levETIRAcetam 500 MG TABLET (FP) PO ONE ×2 (09:15→09:18)
--- NOTE | 2017-04-25 09:26 | PDOC ---
History of Present Illness - General Chief Complaint: RX Refill Stated Complaint: RX REFILL (HX OF SEIZURE) Time Seen by Provider: 04/25/17 08:52 History Source: Patient Exam Limitations: No Limitations - History of Present Illness Initial Comments: 04/25/17 09:26 Patient comes well known to this emergency department with history of seizure disorder and alcoholism. Admits to drinking daily. However states is not started drinking yet today. Has run out of his Keppra as he is noncompliant with following up with his neurologist or PMD. "I tried to get a hold of her all weekend" when reminded that this was a holiday weekend and that physicians are not near office Tuesday through Tuesday patient had no comment. Discussed the fact the patient has been here every month and receiving month quantities Timing/Duration: unsure Severity: mild Past History - Travel Traveled outside of the country in the last 30 days: No Close contact w/someone who was outside of country & ill: No - Past Medical History Allergies/Adverse Reactions: Allergies Allergy/AdvReac Type Severity Reaction Status Date / Time No Known Allergies Allergy Verified 04/25/17 08:36 Home Medications: Ambulatory Orders levETIRAcetam [Keppra -] 250 mg PO BID #20 tablet 04/25/17 Anemia: No Asthma: No Cancer: No Cardiac Disorders: No CVA: Yes (LT SIDE WEAKNESS) COPD: No CHF: No Dementia: No Diabetes: No GI Disorders: No Disorders: No HTN: No Hypercholesterolemia: No Liver Disease: No Seizures: Yes Thyroid Disease: No - Surgical History Abdominal Surgery: Yes (UNKNOWN SX.) Appendectomy: No Cardiac Surgery: No Cholecystectomy: No Lung Surgery: No Neurologic Surgery: No Orthopedic Surgery: Yes (Right hand surgery) - Immunization History Immunization Up to Date: No - Suicide/Smoking/Psychosocial Hx Smoking Status: Yes Smoking History: Current every day smoker Have you smoked in the past 12 months: Yes Number of Cigarettes Smoked Daily: 20 Information on smoking cessation initiated: No 'Breaking Loose' booklet given: 03/25/14 Hx Alcohol Use: Yes (DAILY) Drug/Substance Use Hx: No Substance Use Type: Alcohol Hx Substance Use Treatment: No Review of Systems - Review of Systems Able to Perform ROS?: Yes Is the patient limited Hungarian proficient: Yes Constitutional: Yes: Symptoms Reported, See HPI, Chills. No: Fever, Malaise HEENTM: Yes: See HPI. No: Symptoms Reported Respiratory: Yes: See HPI. No: Symptoms reported Musculoskeletal: Yes: Symptoms Reported, See HPI, Back Pain, Muscle Weakness Integumentary: No: Symptoms Reported Neurological: Yes: Symptoms reported, See HPI, Unsteady Gait. No: Headache, Numbness, Paresthesia, Seizure, Tingling All Other Systems: Reviewed and Negative *Physical Exam - Vital Signs Last Vital Signs Temp Pulse Resp BP Pulse Ox 98.0 F 88 18 136/78 97 04/25/17 08:32 04/25/17 08:32 04/25/17 08:32 04/25/17 08:32 04/25/17 08:32 - Physical Exam General Appearance: Yes: Nourished, Appropriately Dressed, Mild Distress HEENT: positive: CLIF, Normal ENT Inspection, Pharynx Normal Neck: positive: Supple. negative: Tender Respiratory/Chest: positive: Lungs Clear Musculoskeletal: positive: Normal Inspection Integumentary: positive: Dry, Warm, Pale Neurologic: positive: manager subway II-XII NML intact, Fully Oriented, Alert, Normal Mood/ Affect, Normal Response, Motor Strength 5/5 Medical Decision Making - Medical Decision Making 04/25/17 12:22 Frequent ER visits requesting monthly Keppra refills. Discussed with patient would provide 3 days and need to follow up with neurologist this week for ongoing prescription details and refills. *DC/Admit/Observation/Transfer Diagnosis at time of Disposition: Encounter for medication refill - Discharge Dispostion Disposition: HOME Condition at time of disposition: Stable Admit: No - Prescriptions Prescriptions: levETIRAcetam [Keppra -] 250 mg PO BID #20 tablet - Referrals Referrals: Lonnie Varma MD [Staff Physician] - - Patient Instructions Printed Discharge Instructions: DI for Seizure Disorder -- Adult Additional Instructions: You need to call and make appointment to see her neurologist this week as the emergency department cannot be this prescribing doctor for your seizure medications Try to avoid alcohol as this will make seizure disorder worse - Post Discharge Activity
== END 2017-04-25 09:39 | disposition home or self-care (01) ==
LOC: JERFT 08:23
DX: Z76.0 Encounter for issue of repeat prescription (principal); G40.909 Epilepsy, unspecified, not intractable, without status epilepticus; F10.10 Alcohol abuse, uncomplicated
CPT/HCPCS: 99281-25

== ENCOUNTER 2017-04-30 16:13 | Emergency (ER) | payer OTHER ==
[2017-04-30 16:29] VITALS: BP 127/84; PULSE 87; TEMP 97.9; BMI 25.8
--- NOTE | 2017-04-30 17:22 | PDOC ---
History of Present Illness - General Chief Complaint: RX Refill Stated Complaint: DIZZINESS Time Seen by Provider: 04/30/17 16:38 History Source: Patient Exam Limitations: No Limitations - History of Present Illness Initial Comments: 04/30/17 17:22 Best Contact: Pmhx: Zoë Pshx:N/A Allergies: NKDA\ 57-year-old male presents to the emergency department requesting for medication refill. Patient states he ran out of his Keppra 750 mg, taking 1 tablet daily. Patient denies any aura or feeling of having any seizures. Patient denies headache, dizziness, lightheadedness, visual disturbance, neck pain, back pains , chest pain, shortness of breath, extremity numbness or tingling sensation. Patient denies any complaints. Past History - Past Medical History Allergies/Adverse Reactions: Allergies Allergy/AdvReac Type Severity Reaction Status Date / Time No Known Allergies Allergy Verified 04/30/17 16:22 Home Medications: Ambulatory Orders levETIRAcetam [Keppra -] 250 mg PO BID #20 tablet 04/25/17 levETIRAcetam [Levetiracetam -] 750 mg PO DAILY #7 tab.er.24h 04/30/17 Anemia: No Asthma: No Cancer: No Cardiac Disorders: No CVA: Yes (LT SIDE WEAKNESS) COPD: No CHF: No Dementia: No Diabetes: No GI Disorders: No Disorders: No HTN: No Hypercholesterolemia: No Liver Disease: No Seizures: Yes Thyroid Disease: No - Surgical History Abdominal Surgery: Yes (UNKNOWN SX.) Appendectomy: No Cardiac Surgery: No Cholecystectomy: No Lung Surgery: No Neurologic Surgery: No Orthopedic Surgery: Yes (Right hand surgery) - Immunization History Immunization Up to Date: No - Suicide/Smoking/Psychosocial Hx Smoking Status: Yes Smoking History: Current every day smoker Have you smoked in the past 12 months: Yes Number of Cigarettes Smoked Daily: 20 Information on smoking cessation initiated: No 'Breaking Loose' booklet given: 03/25/14 Hx Alcohol Use: No Drug/Substance Use Hx: No Substance Use Type: Alcohol Hx Substance Use Treatment: No Review of Systems - Review of Systems Able to Perform ROS?: Yes Comments:: 04/30/17 17:24 CONSTITUTIONAL: Absent: fever, chills, diaphoresis, generalized weakness, malaise, loss of appetite HEENT: Absent: rhinorrhea, nasal congestion, throat pain, throat swelling, difficulty swallowing, mouth swelling, ear pain, eye pain, visual Changes CARDIOVASCULAR: Absent: chest pain, loss of consciousness, palpitations, irregular heart rate, peripheral edema RESPIRATORY: Absent: cough, shortness of breath, dyspnea with exertion, orthopnea, wheezing, stridor, hemoptysis GASTROINTESTINAL: Absent: abdominal pain, abdominal distension, nausea, vomiting, diarrhea, constipation, melena, hematochezia GENITOURINARY: Absent: dysuria, frequency, urgency, hesitancy, hematuria, flank pain, genital pain MUSCULOSKELETAL: Absent: myalgia, arthralgia, joint swelling SKIN: Absent: rash, itching, pallor HEMATOLOGIC/IMMUNOLOGIC: Absent: easy bleeding, easy bruising, lymphadenopathy, frequent infections ENDOCRINE: Absent: unexplained weight gain, unexplained weight loss, heat intolerance, cold intolerance NEUROLOGIC: Absent: headache, focal weakness or paresthesias, dizziness, unsteady gait, seizure, mental status changes, bladder or bowel incontinence PSYCHIATRIC: Absent: anxiety, depression, suicidal or homicidal ideation, hallucinations. Is the patient limited Guyanese proficient: No *Physical Exam - Vital Signs Last Vital Signs Temp Pulse Resp BP Pulse Ox 97.9 F 87 20 127/84 96 04/30/17 16:23 04/30/17 16:23 04/30/17 16:23 04/30/17 16:23 04/30/17 16:23 - Physical Exam Comments: 04/30/17 17:24 GENERAL: Well developed, well nourished. Awake and alert. No acute distress. HEENT: Normocephalic, atraumatic. PERRLA, EOMI. No conjunctival pallor. Sclera are non- icteric. Moist mucous membranes. Oropharynx is clear. NECK: Supple. Full ROM. No JVD. Carotid pulses 2+ and symmetric, without bruits. No thyromegaly. No lymphadenopathy. CARDIOVASCULAR: Regular rate and rhythm. No murmurs, rubs, or gallops. Distal pulses are 2+ and symmetric. PULMONARY: No evidence of respiratory distress. Lungs clear to auscultation bilaterally. No wheezing, rales or rhonchi. ABDOMINAL: Soft. Non-tender. Non-distended. No rebound or guarding. No organomegaly. Normoactive bowel sounds. MUSCULOSKELETAL Normal range of motion at all joints. No bony deformities or tenderness. No CVA tenderness. EXTREMITIES: No cyanosis. No clubbing. No edema. No calf tenderness. SKIN: Warm and dry. Normal capillary refill. No rashes. No jaundice. NEUROLOGICAL: Alert, awake, appropriate. Cranial nerves 2-12 intact. No deficits to light touch and temperature in face, upper extremities and lower extremities. No motor deficits in the in face, upper extremities and lower extremities. Normoreflexic in the upper and lower extremities. Normal speech. Toes are down- going bilaterally. Gait is normal without ataxia. PSYCHIATRIC: Cooperative. Good eye contact. Appropriate mood and affect. *DC/Admit/Observation/Transfer Diagnosis at time of Disposition: Medication refill - Discharge Dispostion Disposition: HOME Condition at time of disposition: Stable Admit: No - Prescriptions Prescriptions: levETIRAcetam [Levetiracetam -] 750 mg PO DAILY #7 tab.er.24h - Referrals Referrals: Sunil Guevara DO [Staff Physician] - - Patient Instructions Printed Discharge Instructions: How to Refill a Prescription Additional Instructions: As per our discussion, you need to follow-up with a neurologist for your Keppra medication refill. You take these medications for years seizures. The emergency department is not the place for you to get your medication refill numerous times. For the past 2 months, you had your Keppra medication refilled in the emergency department. You 've explained to me that previous providers have explained to you that you need to follow-up with her neurologist. I have also strongly advised you to follow up with your neurologist or Dr. Guevara [phone] this week. Return back to the emergency department for any medical concerns. - Post Discharge Activity
[2017-04-30] MEDS ORDERED: levETIRAcetam XR 750 MG TAB PO ONE (18:00)
== END 2017-04-30 17:26 | disposition home or self-care (01) ==
LOC: JERFT 16:13
DX: G40.909 Epilepsy, unspecified, not intractable, without status epilepticus (principal); I69.854 Hemiplegia and hemiparesis following other cerebrovascular disease affecting left non-dominant side; F17.210 Nicotine dependence, cigarettes, uncomplicated; F10.10 Alcohol abuse, uncomplicated
CPT/HCPCS: 99281-25

== ENCOUNTER 2020-08-08 14:35 | Emergency (ER) | payer OTHER ==
[2020-08-08 14:43] VITALS: TEMP 98.2; BMI 20.1
[2020-08-08 18:05] VITALS: BP 122/74; PULSE 100
== END 2020-08-08 16:32 | disposition left against medical advice (07) ==
LOC: JER 14:35
DX: Z76.0 Encounter for issue of repeat prescription (principal)
CPT/HCPCS: 99281-25

== ENCOUNTER 2020-08-14 10:21 | Inpatient (IN) | payer OTHER ==
[2020-08-14] MEDS ORDERED: ACETAMINOPHEN 1000 MG/100 ML VIAL (NON FORMULARY) IVPB ONE (10:59)
[2020-08-14] MEDS ORDERED: ACETAMINOPHEN INJECTION 100 ML IVPB ONE (11:06)
[2020-08-14 11:09] VITALS: BMI 24.2
[2020-08-14 11:21] LABS: BASO % 0.4 % (0-2.0); EOS % 1.6 % (0-4.5); HEMATOCRIT 42.6 % (35.4-49); HEMOGLOBIN 14.5 GM/dL (11.7-16.9); LYMPH % 16.8 % (8-40); MCH 31.6 pg (25.7-33.7); MEAN CELL VOLUME 92.8 fl (80-96); MONO % 6.2 % (3.8-10.2); PLATELET COUNT 234 K/MM3 (134-434); RBC 4.59 M/mm3 (4.00-5.60); WHITE BLOOD COUNT 9.1 K/mm3 (4.0-10.0)
[2020-08-14 11:28] LABS: INR 1.03 (0.83-1.09); PROTHROMBIN TIME (PATIENT) 12.5 SEC (9.7-13.0)
[2020-08-14 11:31] LABS: ACTIVATED PTT 29.6 SECONDS (25.2-36.5)
[2020-08-14 11:44] LABS: CHLORIDE 106 mmol/L (98-107); SODIUM 142 mmol/L (136-145)
[2020-08-14 11:46] LABS: ANION GAP 5 MMOL/L (8-16); BLOOD UREA NITROGEN 14.1 mg/dL (7-18); CALCIUM 9.4 mg/dL (8.5-10.1); CO2 32 mmol/L (21-32); GLUCOSE,RANDOM 95 mg/dL (74-106)
[2020-08-14 11:49] LABS: CREATININE 0.8 mg/dL (0.55-1.3); SGOT/AST 10 U/L (15-37); SGPT/ALT 19 U/L (13-61)
[2020-08-14 11:51] LABS: BILIRUBIN,TOTAL 0.3 mg/dL (0.2-1); TOT PROT 7.5 g/dl (6.4-8.2)
[2020-08-14 11:52] LABS: ALK PHOS 103 U/L (45-117)
[2020-08-14] MEDS ORDERED: traMADol HCL 50 MG TABLET PO ONE (15:13)
[2020-08-14 15:24] LABS: CHOLESTEROL 173 mg/dL (50-200)
[2020-08-14 15:25] LABS: TRIGLYCERIDES 174 mg/dL (0-150)
[2020-08-14 15:26] LABS: LDL CHOLESTEROL (ONLY SJRH) 113 mg/dL (5-100)
[2020-08-14 15:28] LABS: HDL CHOLESTEROL 33 mg/dL (40-60)
[2020-08-14 15:46] LABS: PH,URINE 5.5 (5.0-8.0); URINE APPEARANCE CLEAR; URINE BILIRUBIN NEGATIVE (NEGATIVE); URINE COLOR YELLOW; URINE GLUCOSE (UA) NEGATIVE (NEGATIVE); URINE KETONE TRACE (NEGATIVE); URINE LEUK ESTERASE NEGATIVE (NEGATIVE); URINE NITRITE NEGATIVE (NEGATIVE); URINE PROTEIN NEGATIVE (NEGATIVE)
[2020-08-14] MEDS ORDERED: levETIRAcetam 500 MG/5 ML INJECTION VIAL IVPB ONE ×3 (16:29→16:36)
[2020-08-14] MEDS: NICOTINE 14 MG/24 HOURS TOPICAL PATCH TD SCH (20:00)
[2020-08-14] MEDS ORDERED: THIAMINE HCL 200 MG/2 ML VIAL IVPB ONE (20:13)
[2020-08-14] MEDS ORDERED: THIAMINE HCL 200 MG/2 ML VIAL ONE (21:19)
[2020-08-14] MEDS ORDERED: levETIRAcetam 500 MG TABLET (FP) PO ONE (21:19)
[2020-08-14] MEDS: levETIRAcetam 500 MG TABLET (FP) PO SCH (21:28)
[2020-08-14] MEDS ORDERED: ACETAMINOPHEN 325 MG TABLET (FP) PO ONE (21:40)
[2020-08-14] MEDS ORDERED: MELATONIN 5 MG TABLETS PO ONE (21:41)
[2020-08-14] MEDS ORDERED: ACETAMINOPHEN 325 MG TABLET (FP) ONE (21:56)
[2020-08-14] MEDS ORDERED: MELATONIN 5 MG TABLETS ONE (21:56)
[2020-08-15] MEDS ORDERED: ACETAMINOPHEN 325 MG TABLET (FP) PO PRN (08:50)
[2020-08-15] MEDS ORDERED: oxyCODONE HCL 5 MG TABLET PO PRN (08:51)
[2020-08-15] MEDS ORDERED: ACETAMINOPHEN 325 MG TABLET (FP) ONE (08:58)
[2020-08-15] MEDS ORDERED: MULTIVITAMINS (DAILY MVI) TABLET (FP) ONE (08:58)
[2020-08-15] MEDS ORDERED: THIAMINE HCL 100 MG TABLET (FP) ONE (08:59)
[2020-08-15] MEDS ORDERED: oxyCODONE HCL 5 MG TABLET ONE (08:59)
[2020-08-15] MEDS ORDERED: levETIRAcetam 500 MG TABLET (FP) PO ONE (08:59)
[2020-08-15] MEDS ORDERED: ENOXAPARIN NA (PORCINE) 40 MG/0.4 ML DISP.SYRIN SQ ONE (09:00)
[2020-08-15] MEDS ORDERED: FOLIC ACID 1 MG TABLET (FP) ONE (09:00)
[2020-08-15] MEDS ORDERED: PT OWN MED DRAWER 7, Y5N ONE (09:00)
[2020-08-15] MEDS: levETIRAcetam 500 MG TABLET (FP) PO SCH ×2 (09:12→22:32)
[2020-08-15] MEDS ORDERED: FOLIC ACID 1 MG TABLET (FP) PO SCH (10:00)
[2020-08-15] MEDS ORDERED: MULTIVITAMINS (DAILY MVI) TABLET (FP) PO SCH (10:00)
[2020-08-15] MEDS ORDERED: ENOXAPARIN NA (PORCINE) 40 MG/0.4 ML DISP.SYRIN SQ SCH (10:00)
[2020-08-15] MEDS ORDERED: THIAMINE HCL 100 MG TABLET (FP) PO SCH (10:00)
[2020-08-15] MEDS ORDERED: FAMOTIDINE 20 MG TABLET ONE (11:22)
[2020-08-15] MEDS ORDERED: ONDANSETRON 4 MG/2 ML VIAL IVPUSH ONE (12:39)
[2020-08-15] MEDS: NICOTINE 14 MG/24 HOURS TOPICAL PATCH TD SCH (15:27)
[2020-08-15] MEDS: traMADol HCL 50 MG TABLET PO PRN (20:04)
[2020-08-15] MEDS ORDERED: POLYETHYLENE GLYCOL 3350 119 GM BTL PO ONE (22:00)
[2020-08-15] MEDS ORDERED: MELATONIN 1 MG TABLET PO ONE (22:00)
[2020-08-16] MEDS: levETIRAcetam 500 MG TABLET (FP) PO SCH ×3 (07:45→21:00)
[2020-08-16] MEDS: NICOTINE 14 MG/24 HOURS TOPICAL PATCH TD SCH ×2 (08:02→09:27)
[2020-08-16 08:49] LABS: BASO % 0.3 % (0-2.0); EOS % 2.5 % (0-4.5); HEMATOCRIT 40.9 % (35.4-49); HEMOGLOBIN 13.6 GM/dL (11.7-16.9); LYMPH % 21.1 % (8-40); MCH 31.2 pg (25.7-33.7); MCHC 33.3 g/dl (32.0-35.9); MEAN CELL VOLUME 93.6 fl (80-96); MEAN PLT VOLUME 8.5 fl (7.5-11.1); MONO % 7.2 % (3.8-10.2); NEUT % 68.9 % (42.8-82.8); PLATELET COUNT 234 K/MM3 (134-434); RBC 4.37 M/mm3 (4.00-5.60); RDW 13.9 % (11.9-15.9); WHITE BLOOD COUNT 9.7 K/mm3 (4.0-10.0)
[2020-08-16 09:11] LABS: ALBUMIN 3.8 g/dl (3.4-5.0)
[2020-08-16 09:14] LABS: CREATININE 0.7 mg/dL (0.55-1.3)
[2020-08-16 09:15] LABS: BILIRUBIN,TOTAL 0.3 mg/dL (0.2-1)
[2020-08-16] MEDS: FOLIC ACID 1 MG TABLET (FP) PO SCH (09:25)
[2020-08-16] MEDS: ENOXAPARIN NA (PORCINE) 40 MG/0.4 ML DISP.SYRIN SQ SCH (09:25)
[2020-08-16] MEDS: traMADol HCL 50 MG TABLET PO PRN ×2 (09:26→19:35)
[2020-08-16] MEDS: THIAMINE HCL 100 MG TABLET (FP) PO SCH (09:26)
[2020-08-16] MEDS: MULTIVITAMINS (DAILY MVI) TABLET (FP) PO SCH (09:26)
[2020-08-16] MEDS ORDERED: NICOTINE 14 MG/24 HOURS TOPICAL PATCH TD SCH (10:00)
[2020-08-16] MEDS: ACETAMINOPHEN 325 MG TABLET (FP) PO PRN (11:19)
[2020-08-16] MEDS: MELATONIN 5 MG TABLETS PO PRN (20:19)
[2020-08-17] MEDS: ACETAMINOPHEN 325 MG TABLET (FP) PO PRN ×3 (00:45→20:04)
[2020-08-17] MEDS ORDERED: LORazepam 0.5 MG TABLET PO ONE (08:43)
[2020-08-17] MEDS ORDERED: LORazepam 0.5 MG TABLET PO PRN (08:47)
[2020-08-17] MEDS: NICOTINE 14 MG/24 HOURS TOPICAL PATCH TD SCH (09:01)
[2020-08-17] MEDS: ENOXAPARIN NA (PORCINE) 40 MG/0.4 ML DISP.SYRIN SQ SCH (09:01)
[2020-08-17] MEDS: levETIRAcetam 500 MG TABLET (FP) PO SCH ×2 (09:01→21:00)
[2020-08-17] MEDS: FOLIC ACID 1 MG TABLET (FP) PO SCH (09:03)
[2020-08-17] MEDS: MULTIVITAMINS (DAILY MVI) TABLET (FP) PO SCH (09:03)
[2020-08-17] MEDS: traMADol HCL 50 MG TABLET PO PRN (09:03)
[2020-08-17] MEDS: THIAMINE HCL 100 MG TABLET (FP) PO SCH (09:03)
[2020-08-17 10:25] LABS: BASO % 0.3 % (0-2.0); HEMATOCRIT 40.8 % (35.4-49); HEMOGLOBIN 13.6 GM/dL (11.7-16.9); LYMPH % 18.4 % (8-40); MCH 30.7 pg (25.7-33.7); MCHC 33.2 g/dl (32.0-35.9); MEAN CELL VOLUME 92.7 fl (80-96); MEAN PLT VOLUME 8.8 fl (7.5-11.1); MONO % 5.7 % (3.8-10.2); NEUT % 73.6 % (42.8-82.8); PLATELET COUNT 227 K/MM3 (134-434); RBC 4.41 M/mm3 (4.00-5.60); RDW 13.7 % (11.9-15.9); WHITE BLOOD COUNT 8.1 K/mm3 (4.0-10.0)
[2020-08-17 10:41] LABS: ALBUMIN 3.6 g/dl (3.4-5.0); BLOOD UREA NITROGEN 12.9 mg/dL (7-18); CALCIUM 8.9 mg/dL (8.5-10.1)
[2020-08-17 10:42] LABS: MAGNESIUM 1.9 mg/dL (1.8-2.4)
[2020-08-17 10:45] LABS: CREATININE 0.8 mg/dL (0.55-1.3)
[2020-08-17 10:46] LABS: BILIRUBIN,TOTAL 0.4 mg/dL (0.2-1); TOT PROT 6.8 g/dl (6.4-8.2)
[2020-08-17] MEDS: oxyCODONE HCL 5 MG TABLET PO PRN (16:07)
[2020-08-17] MEDS: MELATONIN 5 MG TABLETS PO PRN (21:00)
[2020-08-18] MEDS: oxyCODONE HCL 5 MG TABLET PO PRN ×4 (02:59→21:01)
[2020-08-18] MEDS: THIAMINE HCL 100 MG TABLET (FP) PO SCH (09:35)
[2020-08-18] MEDS: levETIRAcetam 500 MG TABLET (FP) PO SCH ×2 (09:35→21:01)
[2020-08-18] MEDS: NICOTINE 14 MG/24 HOURS TOPICAL PATCH TD SCH (09:35)
[2020-08-18] MEDS: ENOXAPARIN NA (PORCINE) 40 MG/0.4 ML DISP.SYRIN SQ SCH (09:36)
[2020-08-18] MEDS: MULTIVITAMINS (DAILY MVI) TABLET (FP) PO SCH (09:36)
[2020-08-18] MEDS: FOLIC ACID 1 MG TABLET (FP) PO SCH (09:36)
[2020-08-18 12:18] LABS: BASO % 0.4 % (0-2.0); EOS % 2.2 % (0-4.5); HEMATOCRIT 42.9 % (35.4-49); HEMOGLOBIN 14.1 GM/dL (11.7-16.9); LYMPH % 18.5 % (8-40); MCH 30.8 pg (25.7-33.7); MCHC 32.9 g/dl (32.0-35.9); MEAN CELL VOLUME 93.7 fl (80-96); MEAN PLT VOLUME 8.6 fl (7.5-11.1); MONO % 6.2 % (3.8-10.2); NEUT % 72.7 % (42.8-82.8); PLATELET COUNT 240 K/MM3 (134-434); RBC 4.58 M/mm3 (4.00-5.60); RDW 13.9 % (11.9-15.9); WHITE BLOOD COUNT 9.2 K/mm3 (4.0-10.0)
[2020-08-18] MEDS: ACETAMINOPHEN 325 MG TABLET (FP) PO PRN (12:45)
[2020-08-18 12:46] LABS: CALCIUM 9.3 mg/dL (8.5-10.1)
[2020-08-18 12:47] LABS: ALBUMIN 3.8 g/dl (3.4-5.0); BLOOD UREA NITROGEN 12.4 mg/dL (7-18); MAGNESIUM 2.1 mg/dL (1.8-2.4)
[2020-08-18 12:50] LABS: CREATININE 0.8 mg/dL (0.55-1.3)
[2020-08-18 12:52] LABS: BILIRUBIN,TOTAL 0.3 mg/dL (0.2-1)
[2020-08-18] MEDS: MELATONIN 5 MG TABLETS PO PRN (21:01)
[2020-08-19 07:52] LABS: BASO % 0.4 % (0-2.0); HEMATOCRIT 41.6 % (35.4-49); HEMOGLOBIN 14.1 GM/dL (11.7-16.9); LYMPH % 21.5 % (8-40); MCH 31.6 pg (25.7-33.7); MCHC 33.9 g/dl (32.0-35.9); MEAN CELL VOLUME 93.2 fl (80-96); MEAN PLT VOLUME 8.4 fl (7.5-11.1); MONO % 6.9 % (3.8-10.2); NEUT % 68.2 % (42.8-82.8); PLATELET COUNT 233 10^3/uL (134-434); RBC 4.46 M/mm3 (4.00-5.60); RDW 14.2 % (11.9-15.9); WHITE BLOOD COUNT 8.8 K/mm3 (4.0-10.0)
[2020-08-19] MEDS ORDERED: ATORVASTATIN CA 10 MG TABLET (FP) PO ONE (07:59)
[2020-08-19 08:06] LABS: ALBUMIN 3.9 g/dl (3.4-5.0); BLOOD UREA NITROGEN 15.4 mg/dL (7-18); CALCIUM 9.4 mg/dL (8.5-10.1); MAGNESIUM 2.2 mg/dL (1.8-2.4)
[2020-08-19 08:09] LABS: CREATININE 0.8 mg/dL (0.55-1.3)
[2020-08-19 08:11] LABS: BILIRUBIN,TOTAL 0.4 mg/dL (0.2-1); TOT PROT 7.4 g/dl (6.4-8.2)
[2020-08-19] MEDS: THIAMINE HCL 100 MG TABLET (FP) PO SCH (09:17)
[2020-08-19] MEDS: NICOTINE 14 MG/24 HOURS TOPICAL PATCH TD SCH (09:17)
[2020-08-19] MEDS: MULTIVITAMINS (DAILY MVI) TABLET (FP) PO SCH (09:17)
[2020-08-19] MEDS: ENOXAPARIN NA (PORCINE) 40 MG/0.4 ML DISP.SYRIN SQ SCH (09:17)
[2020-08-19] MEDS: FOLIC ACID 1 MG TABLET (FP) PO SCH (09:17)
[2020-08-19] MEDS: levETIRAcetam 500 MG TABLET (FP) PO SCH ×2 (09:17→21:00)
[2020-08-19] MEDS: oxyCODONE HCL 5 MG TABLET PO PRN ×2 (12:02→21:03)
[2020-08-19] MEDS: MELATONIN 5 MG TABLETS PO PRN (21:00)
[2020-08-20] MEDS: ACETAMINOPHEN 325 MG TABLET (FP) PO PRN ×2 (01:22→12:21)
[2020-08-20] MEDS: oxyCODONE HCL 5 MG TABLET PO PRN ×4 (04:31→20:12)
[2020-08-20] MEDS: ENOXAPARIN NA (PORCINE) 40 MG/0.4 ML DISP.SYRIN SQ SCH (09:22)
[2020-08-20] MEDS: NICOTINE 14 MG/24 HOURS TOPICAL PATCH TD SCH (09:22)
[2020-08-20] MEDS: FOLIC ACID 1 MG TABLET (FP) PO SCH (09:22)
[2020-08-20] MEDS: levETIRAcetam 500 MG TABLET (FP) PO SCH ×2 (09:22→21:37)
[2020-08-20] MEDS: MULTIVITAMINS (DAILY MVI) TABLET (FP) PO SCH (09:22)
[2020-08-20] MEDS: THIAMINE HCL 100 MG TABLET (FP) PO SCH (09:22)
[2020-08-20] MEDS: MELATONIN 5 MG TABLETS PO PRN (20:12)
[2020-08-21 07:47] LABS: BASO % 0.4 % (0-2.0); EOS % 3.4 % (0-4.5); HEMOGLOBIN 13.8 GM/dL (11.7-16.9); LYMPH % 20.8 % (8-40); MCH 31.4 pg (25.7-33.7); MCHC 33.6 g/dl (32.0-35.9); MEAN CELL VOLUME 93.5 fl (80-96); MEAN PLT VOLUME 8.4 fl (7.5-11.1); MONO % 7.8 % (3.8-10.2); NEUT % 67.6 % (42.8-82.8); PLATELET COUNT 230 10^3/uL (134-434); RBC 4.39 M/mm3 (4.00-5.60); RDW 13.9 % (11.9-15.9); WHITE BLOOD COUNT 7.9 K/mm3 (4.0-10.0)
[2020-08-21 07:50] LABS: INR 0.97 (0.83-1.09); PROTHROMBIN TIME (PATIENT) 11.7 SEC (9.7-13.0)
[2020-08-21 08:07] LABS: ALBUMIN 3.7 g/dl (3.4-5.0); BLOOD UREA NITROGEN 17.4 mg/dL (7-18); CALCIUM 8.9 mg/dL (8.5-10.1)
[2020-08-21 08:10] LABS: CREATININE 0.9 mg/dL (0.55-1.3)
[2020-08-21 08:11] LABS: BILIRUBIN,TOTAL 0.4 mg/dL (0.2-1)
[2020-08-21 08:12] LABS: TOT PROT 7.1 g/dl (6.4-8.2)
[2020-08-21] MEDS: levETIRAcetam 500 MG TABLET (FP) PO SCH ×2 (09:38→21:07)
[2020-08-21] MEDS: NICOTINE 14 MG/24 HOURS TOPICAL PATCH TD SCH (09:52)
[2020-08-21] MEDS: MULTIVITAMINS (DAILY MVI) TABLET (FP) PO SCH (09:54)
[2020-08-21] MEDS: FOLIC ACID 1 MG TABLET (FP) PO SCH (09:54)
[2020-08-21] MEDS: THIAMINE HCL 100 MG TABLET (FP) PO SCH (09:54)
[2020-08-21] MEDS ORDERED: MIDAZOLAM HCL 2 MG/2 ML SINGLE DOSE VIAL IVPUSH ONE ×2 (10:55→11:13)
[2020-08-21] MEDS: oxyCODONE HCL 5 MG TABLET PO PRN ×2 (14:27→20:29)
[2020-08-22 07:18] VITALS: BP 122/76; PULSE 68; TEMP 97.6
[2020-08-22 07:59] LABS: BASO % 0.2 % (0-2.0); EOS % 2.7 % (0-4.5); HEMATOCRIT 41.4 % (35.4-49); LYMPH % 18.8 % (8-40); MCH 31.4 pg (25.7-33.7); MCHC 33.8 g/dl (32.0-35.9); MEAN CELL VOLUME 92.9 fl (80-96); MEAN PLT VOLUME 8.3 fl (7.5-11.1); MONO % 7.8 % (3.8-10.2); NEUT % 70.5 % (42.8-82.8); PLATELET COUNT 233 10^3/uL (134-434); RBC 4.46 M/mm3 (4.00-5.60); RDW 13.9 % (11.9-15.9); WHITE BLOOD COUNT 7.4 K/mm3 (4.0-10.0)
[2020-08-22 08:15] LABS: CALCIUM 9.2 mg/dL (8.5-10.1)
[2020-08-22 08:16] LABS: ALBUMIN 3.9 g/dl (3.4-5.0); BLOOD UREA NITROGEN 21.6 mg/dL (7-18); MAGNESIUM 2.2 mg/dL (1.8-2.4)
[2020-08-22 08:19] LABS: CREATININE 0.9 mg/dL (0.55-1.3)
[2020-08-22 08:20] LABS: BILIRUBIN,TOTAL 0.6 mg/dL (0.2-1)
[2020-08-22 08:21] LABS: TOT PROT 7.4 g/dl (6.4-8.2)
[2020-08-22] MEDS: levETIRAcetam 500 MG TABLET (FP) PO SCH (09:38)
[2020-08-22] MEDS: FOLIC ACID 1 MG TABLET (FP) PO SCH (09:38)
[2020-08-22] MEDS: THIAMINE HCL 100 MG TABLET (FP) PO SCH (09:38)
[2020-08-22] MEDS: MULTIVITAMINS (DAILY MVI) TABLET (FP) PO SCH (09:38)
[2020-08-22] MEDS: NICOTINE 14 MG/24 HOURS TOPICAL PATCH TD SCH (09:39)
[2020-08-23 17:08] LABS: FREE KAPPA,SERUM 30.6 mg/L (3.3-19.4)
== END 2020-08-22 11:16 | disposition home or self-care (01) | DRG 964 ==
LOC: JER 10:21 → UNDOADMOB 12:34 → INTOOBSV 12:34 → JERBED 12:34 → OBSVTOIN 16:22 → JERBED 16:22 → INTOOBSV 16:22 → J8W 08-15 12:27 → OBSVTOIN 08-17 14:06
PROVIDERS: ATTEND Nurse Practitioner Acute Care
PROC: 4A00X4Z Measurement of Central Nervous Electrical Activity, External Approach (ICD-10-PCS; 2020-08-16)
PROC: 07DR3ZX Extraction of Iliac Bone Marrow, Percutaneous Approach, Diagnostic (ICD-10-PCS; principal; 2020-08-21)
DX: S72.001A Fracture of unspecified part of neck of right femur, initial encounter for closed fracture (principal); S32.491A Other specified fracture of right acetabulum, initial encounter for closed fracture; I69.354 Hemiplegia and hemiparesis following cerebral infarction affecting left non-dominant side; G40.909 Epilepsy, unspecified, not intractable, without status epilepticus; I10 Essential (primary) hypertension; E78.5 Hyperlipidemia, unspecified; R53.1 Weakness; R10.31 Right lower quadrant pain; R29.6 Repeated falls; R32 Unspecified urinary incontinence; F10.11 Alcohol abuse, in remission; W18.39XA Other fall on same level, initial encounter; Y92.098 Other place in other non-institutional residence as the place of occurrence of the external cause; R93.7 Abnormal findings on diagnostic imaging of other parts of musculoskeletal system
CPT/HCPCS: 20225; 36415; 70450-TC; 71250-TC; 72195-TC; 73523-TC-FY; 74176-TC; 78306-TC; 80053; 80061; 81003; 82550; 82784; 83036; 83721; 83735; 83883; 84146; 84153; 84155; 84165; 84443; 84484; 85025; 85610; 85730; 86334; 87086; 93005; 93010; 93225; 93226; 93306-TC; 93880-TC; 95816; 97116-GP; 97162-GP; 99285-25; A9503; C9803; G0378; J0131; U0003; U0005

== ENCOUNTER 2021-03-30 09:53 | Emergency (ER) | payer OTHER ==
[2021-03-30 10:24] VITALS: TEMP 97.9; BMI 23.5
[2021-03-30] MEDS ORDERED: levETIRAcetam 500 MG TABLET (FP) PO ONE ×2 (11:32→11:56)
[2021-03-30 13:31] VITALS: BP 126/75; PULSE 86
== END 2021-03-30 13:32 | disposition home or self-care (01) ==
LOC: JER 09:53
DX: G40.89 Other seizures (principal)
CPT/HCPCS: 36415; 80177; 93005; 93010; 99283-25

== ENCOUNTER 2022-01-28 15:50 | Observation (INO) | payer OTHER ==
[2022-01-28 16:07] VITALS: BP 108/67; PULSE 79; RESP 20; TEMP 97.2; BMI 25.0
[2022-01-28] MEDS ORDERED: levETIRAcetam 500 MG TABLET (FP) PO ONE ×2 (16:54→18:20)
[2022-01-28 17:37] LABS: HEMATOCRIT 41.8 % (35.4-49); HEMOGLOBIN 13.8 GM/dL (11.7-16.9); MCH 30.3 pg (25.7-33.7); MEAN CELL VOLUME 91.8 fl (80-96); MEAN PLT VOLUME 7.8 fl (7.5-11.1); PLATELET COUNT 300 10^3/uL (134-434); RBC 4.55 M/mm3 (4.00-5.60); WHITE BLOOD COUNT 13.9 K/mm3 (4.0-10.0)
[2022-01-28 18:09] LABS: ALBUMIN 3.8 g/dl (3.4-5.0); BLOOD UREA NITROGEN 10.6 mg/dL (7-18)
[2022-01-28 18:12] LABS: CREATININE 1.2 mg/dL (0.55-1.3)
[2022-01-28 18:13] LABS: BILIRUBIN,TOTAL 0.3 mg/dL (0.2-1)
[2022-01-28 18:14] LABS: TOT PROT 7.5 g/dl (6.4-8.2)
[2022-01-29] MEDS ORDERED: ENOXAPARIN NA (PORCINE) 40 MG/0.4 ML DISP.SYRIN SQ SCH (10:00)
== END 2022-01-28 22:25 | disposition left against medical advice (07) ==
LOC: JER 15:50 → JERBED 18:36
PROVIDERS: ADMIT Internal Medicine; ATTEND Internal Medicine
DX: R56.9 Unspecified convulsions (principal); I69.354 Hemiplegia and hemiparesis following cerebral infarction affecting left non-dominant side
CPT/HCPCS: 36415; 70450-TC; 71045-TC-FY; 72125-TC; 72170-TC-FY; 80053; 80177; 82550; 82962; 84146; 84484; 85027; 93005; 93010; 99285-25; C9803-CS; G0378; U0003; U0005

== ENCOUNTER → 2022-06-07 | Emergency (ER) | payer OTHER ==
[~2022-06-07] MED LIST: levETIRAcetam 500 MG/5 ML INJECTION VIAL IVPB ONE
[2022-06-07 12:54] VITALS: BP 129/70; PULSE 86; RESP 18; TEMP 97.7; BMI 25.0
[2022-06-07 14:35] LABS: BASO % 0.5 % (0-2.0); EOS % 1.5 % (0-4.5); HEMATOCRIT 41.7 % (35.4-49); HEMOGLOBIN 13.9 GM/dL (11.7-16.9); LYMPH % 17.7 % (8-40); MCH 30.4 pg (25.7-33.7); MCHC 33.4 g/dl (32.0-35.9); MEAN PLT VOLUME 7.8 fl (7.5-11.1); MONO % 5.5 % (3.8-10.2); NEUT % 74.8 % (42.8-82.8); PLATELET COUNT 241 10^3/uL (134-434); RBC 4.58 M/mm3 (4.00-5.60); RDW 14.9 % (11.9-15.9); WHITE BLOOD COUNT 9.8 K/mm3 (4.0-10.0)
[2022-06-07 15:08] LABS: ALBUMIN 3.9 g/dl (3.4-5.0); BLOOD UREA NITROGEN 14.6 mg/dL (7-18); CALCIUM 8.8 mg/dL (8.5-10.1)
[2022-06-07 15:11] LABS: CREATININE 0.8 mg/dL (0.55-1.3)
[2022-06-07 15:13] LABS: BILIRUBIN,TOTAL 0.2 mg/dL (0.2-1); TOT PROT 7.3 g/dl (6.4-8.2)
== END | disposition home or self-care (01) ==
LOC: JER 12:34
PROC: 3E033GC Introduction of Other Therapeutic Substance into Peripheral Vein, Percutaneous Approach (ICD-10-PCS; principal; 2022-06-07)
DX: G40.89 Other seizures (principal)
CPT/HCPCS: 36415; 70450-TC; 72125-TC; 80053; 82550; 85025; 93005; 93010; 96374; 99285-25

== ENCOUNTER 2022-11-07 19:29 | Emergency (ER) | payer OTHER ==
[2022-11-07 19:41] VITALS: BP 122/62; PULSE 67; RESP 18; TEMP 98.2; BMI 24.2
[2022-11-07] MEDS ORDERED: levETIRAcetam 250 MG TABLET PO ONE (19:49)
[2022-11-07] MEDS ORDERED: levETIRAcetam 500 MG TABLET (FP) PO ONE (19:51)
== END 2022-11-07 19:53 | disposition home or self-care (01) ==
LOC: JER 19:29 → JERFT 19:29
DX: Z76.0 Encounter for issue of repeat prescription (principal)
CPT/HCPCS: 99281-25

== ENCOUNTER 2022-12-31 13:46 | Inpatient (IN) | payer OTHER ==
[2022-12-31] MEDS ORDERED: VANCOMYCIN/WATER 1250 MG 1,250 MG/250 ML BAG IVPB ONE ×2 (14:52→16:16)
[2022-12-31] MEDS ORDERED: PIPERACILLIN/TAZOB 4.5 GM 4.5 GM in DEXTROSE 5%-WATER 100 ML IVPB ONE (14:52)
[2022-12-31] MEDS ORDERED: ACETAMINOPHEN 1000 MG/100 ML BAG IVPB ONE (15:28)
[2022-12-31] MEDS ORDERED: ACETAMINOPHEN INJECTION 100 ML IVPB ONE (16:15)
[2022-12-31] MEDS ORDERED: PIPERACILLIN/TAZOB 4.5 GM 4.5 GM/100 ML BAG IVPB ONE (16:16)
[2022-12-31 16:37] LABS: HEMATOCRIT 30.5 % (35.4-49); HEMOGLOBIN 9.8 GM/dL (11.7-16.9); LYMPH % 3.3 % (8-40); MCH 28.9 pg (25.7-33.7); MEAN CELL VOLUME 90.4 fl (80-96); MEAN PLT VOLUME 7.7 fl (7.5-11.1); MONO % 3.2 % (3.8-10.2); NEUT % 93.5 % (42.8-82.8); PLATELET COUNT 600 10^3/uL (134-434); RBC 3.38 M/mm3 (4.00-5.60); RDW 15.9 % (11.9-15.9)
[2022-12-31 16:46] LABS: WHITE BLOOD COUNT 38.8 K/mm3 (4.0-10.0)
[2022-12-31 16:48] LABS: INR 1.14 (0.83-1.09); PROTHROMBIN TIME (PATIENT) 13.2 SEC (9.7-13.0)
[2022-12-31 16:51] LABS: ACTIVATED PTT 21.8 SECONDS (25.2-36.5)
[2022-12-31 16:59] LABS: POTASSIUM 3.1 mmol/L (3.5-5.1)
[2022-12-31 17:01] LABS: ALBUMIN 1.6 g/dl (3.4-5.0); BLOOD UREA NITROGEN 25.7 mg/dL (7-18); CALCIUM 7.3 mg/dL (8.5-10.1); MAGNESIUM 2.1 mg/dL (1.8-2.4)
[2022-12-31 17:04] LABS: CREATININE 0.8 mg/dL (0.55-1.3)
[2022-12-31 17:06] LABS: BILIRUBIN,TOTAL 0.4 mg/dL (0.2-1); TOT PROT 5.8 g/dl (6.4-8.2)
[2022-12-31 17:11] LABS: VENOUS BASE EXCESS 6.5 mmol/L (-2-2); VENOUS O2 SATURATION 93.3 % (70-80); VENOUS PCO2 39.6 mmHg (38-52); VENOUS PH 7.499 (7.310-7.410)
[2022-12-31 17:52] LABS: ERYTHROCYTE SEDIMENTATION RATE 99 mm/hr (0-20)
[2022-12-31 19:04] LABS: EPI CELLS >36 /uL (0-25.1); HYALINE CASTS 4 /uL (0-3.1); PH,URINE 5.5 (5.0-8.0); URINE APPEARANCE CLOUDY; URINE BACTERIA 4 /uL (0-1359); URINE BILIRUBIN NEGATIVE (NEGATIVE); URINE COLOR DK YELLOW; URINE GLUCOSE (UA) NEGATIVE (NEGATIVE); URINE KETONE NEGATIVE (NEGATIVE); URINE LEUK ESTERASE NEGATIVE (NEGATIVE); URINE NITRITE NEGATIVE (NEGATIVE); URINE PROTEIN 2+ (NEGATIVE); URINE RBC 17 /uL (0-23.9); URINE WBC 49 /uL (0-25.8)
[2022-12-31] MEDS ORDERED: POTASSIUM CHLORIDE ORAL LIQUID 20 MEQ/15 ML PO ONE (19:27)
[2022-12-31] MEDS ORDERED: POTASSIUM CHLORIDE 30 MEQ in SODIUM CHLORIDE 1,000 ML IV ONE (19:28)
[2022-12-31] MEDS ORDERED: POTASSIUM CHLORIDE ORAL LIQUID 20 MEQ/15 ML ONE (20:04)
[2022-12-31 20:36] LABS: URINE CRYSTALS AMORPHOUS URATES /hpf
[2022-12-31] MEDS: SODIUM CHLORIDE 1,000 ML IV SCH (21:00)
[2022-12-31] MEDS ORDERED: MELATONIN 5 MG TABLETS PO ONE (22:58)
[2022-12-31] MEDS ORDERED: MELATONIN 5 MG TABLETS ONE (22:59)
[2023-01-01] MEDS ORDERED: levETIRAcetam 500 MG TABLET (FP) PO SCH ×2 (00:56→10:00)
[2023-01-01] MEDS ORDERED: PIPERACILLIN/TAZOB 3.375 GM 3.375 GM in DEXTROSE 5%-WATER - 50 ML IVPB SCH (02:00)
[2023-01-01] MEDS: SODIUM CHLORIDE 1,000 ML IV SCH ×2 (04:24→11:20)
[2023-01-01] MEDS ORDERED: ACETAMINOPHEN 325 MG TABLET (FP) PO ONE (05:45)
[2023-01-01] MEDS ORDERED: ACETAMINOPHEN 500 MG TABLET (FP) PO PRN (07:10)
[2023-01-01 08:59] LABS: HEMATOCRIT 28.1 % (35.4-49); HEMOGLOBIN 9.1 GM/dL (11.7-16.9); MCH 29.6 pg (25.7-33.7); MCHC 32.3 g/dl (32.0-35.9); MEAN CELL VOLUME 91.6 fl (80-96); MEAN PLT VOLUME 7.8 fl (7.5-11.1); PLATELET COUNT 584 10^3/uL (134-434); RBC 3.07 M/mm3 (4.00-5.60); RDW 16.3 % (11.9-15.9)
[2023-01-01 09:08] LABS: WHITE BLOOD COUNT 36.4 K/mm3 (4.0-10.0)
[2023-01-01 09:52] LABS: POTASSIUM 3.5 mmol/L (3.5-5.1)
[2023-01-01] MEDS ORDERED: LIDOCAINE 5% TOPICAL PATCH TP SCH (10:00)
[2023-01-01] MEDS ORDERED: traZODone HCL 150 MG TABLET PO SCH (10:00)
[2023-01-01] MEDS ORDERED: ASCORBIC ACID 500 MG TABLET (FP) PO SCH (10:00)
[2023-01-01] MEDS ORDERED: ENOXAPARIN NA (PORCINE) 40 MG/0.4 ML DISP.SYRIN SQ SCH (10:00)
[2023-01-01] MEDS: traZODone HCL 50 MG TABLET (FP) PO SCH (10:28)
[2023-01-01] MEDS: CLINDAMYCIN 900 MG PREMIX IVPB 900 MG/50 ML BAG IVPB SCH ×2 (10:29→17:00)
[2023-01-01] MEDS: NICOTINE 21 MG/24 HOURS TOPICAL PATCH TD SCH ×2 (10:30→11:30)
[2023-01-01 10:38] LABS: ALBUMIN 1.4 g/dl (3.4-5.0); BLOOD UREA NITROGEN 22.6 mg/dL (7-18); CALCIUM 7.1 mg/dL (8.5-10.1); MAGNESIUM 1.8 mg/dL (1.8-2.4)
[2023-01-01 10:41] LABS: CREATININE 0.7 mg/dL (0.55-1.3); PHOSPHOROUS 2.6 mg/dL (2.5-4.9)
[2023-01-01 10:42] LABS: BILIRUBIN,TOTAL 0.7 mg/dL (0.2-1)
[2023-01-01 10:43] LABS: TOT PROT 5.2 g/dl (6.4-8.2)
[2023-01-01 10:44] LABS: ANISOCYTOSIS 0; HELMET CELLS 0; HOWELL-JOLLY BODIES 0; MACROCYTOSIS 0; OVALOCYTE 0; ROULEAU 0; SICKELED CELLS 0; TARGET CELLS 0; TEAR DROP CELLS 0; TOXIC GRANULATION 0
[2023-01-01] MEDS: levETIRAcetam 500 MG/5 ML INJECTION VIAL IVPB SCH ×2 (11:15→23:22)
[2023-01-01] MEDS: PIPERACILLIN/TAZOB 4.5 GM 4.5 GM in DEXTROSE 5%-WATER 100 ML IVPB SCH ×2 (11:52→17:32)
[2023-01-01] MEDS: LIDOCAINE 4% PATCH TP SCH (12:18)
[2023-01-01] MEDS: VANCOMYCIN/WATER FOR INJ (PEG) 1,000 MG/200 ML BAG IVPB SCH ×2 (12:27→22:00)
[2023-01-01] MEDS ORDERED: ACETAMINOPHEN 1000 MG/100 ML BAG IVPB PRN (15:06)
[2023-01-01] MEDS ORDERED: PHENYLEPHRINE HCL 10 MG/1 ML SINGLE DOSE VIAL ONE (19:35)
[2023-01-01] MEDS ORDERED: PROPOFOL 20 ML ONE (19:38)
[2023-01-01] MEDS ORDERED: FENTANYL CITRATE/PF 50 MCG/ML VIAL ONE (20:28)
[2023-01-01] MEDS ORDERED: KETAMINE HCL 200 MG/20 ML VIAL ONE (20:55)
[2023-01-01] MEDS ORDERED: MIDAZOLAM HCL 2 MG/2 ML SINGLE DOSE VIAL ONE (20:56)
[2023-01-01] MEDS ORDERED: BUPIVACAINE HCL/PF 0.5% (5MG/ML) 10 ML VIAL ONE (21:05)
[2023-01-01] MEDS ORDERED: BUPIVACAINE HCL/PF 0.5% (5 MG/ML) 30 ML VIAL IJ ONE (21:08)
[2023-01-01] MEDS ORDERED: ONDANSETRON 4 MG/2 ML VIAL IVPUSH PRN (21:28)
[2023-01-01] MEDS ORDERED: LACTATED RINGERS SOLUTION 1,000 ML IV SCH (21:30)
[2023-01-01] MEDS ORDERED: LIDOCAINE PATCH REMOVAL MC SCH (22:00)
[2023-01-01] MEDS: MELATONIN 5 MG TABLETS PO SCH (23:11)
[2023-01-02] MEDS ORDERED: ACETAMINOPHEN 1000 MG/100 ML BAG IVPB PRN (01:22)
[2023-01-02] MEDS: CLINDAMYCIN 900 MG PREMIX IVPB 900 MG/50 ML BAG IVPB SCH ×3 (01:36→18:22)
[2023-01-02] MEDS ORDERED: PIPERACILLIN/TAZOB 3.375 GM 3.375 GM in DEXTROSE 5%-WATER - 50 ML IVPB SCH (02:00)
[2023-01-02] MEDS: PIPERACILLIN/TAZOB 4.5 GM 4.5 GM in DEXTROSE 5%-WATER 100 ML IVPB SCH ×3 (02:24→18:22)
[2023-01-02 09:09] LABS: BASO % 0.1 % (0-2.0); EOS % 0.1 % (0-4.5); HEMATOCRIT 25.8 % (35.4-49); HEMOGLOBIN 8.5 GM/dL (11.7-16.9); LYMPH % 6.7 % (8-40); MCH 29.9 pg (25.7-33.7); MCHC 33.2 g/dl (32.0-35.9); MEAN CELL VOLUME 90.2 fl (80-96); MEAN PLT VOLUME 7.2 fl (7.5-11.1); MONO % 3.6 % (3.8-10.2); NEUT % 89.5 % (42.8-82.8); PLATELET COUNT 642 10^3/uL (134-434); RBC 2.85 M/mm3 (4.00-5.60); RDW 15.9 % (11.9-15.9); WHITE BLOOD COUNT 18.8 K/mm3 (4.0-10.0)
[2023-01-02 09:13] LABS: INR 1.19 (0.83-1.09); PROTHROMBIN TIME (PATIENT) 13.8 SEC (9.7-13.0)
[2023-01-02 09:35] LABS: CHLORIDE 106 mmol/L (98-107); POTASSIUM 3.4 mmol/L (3.5-5.1); SODIUM 141 mmol/L (136-145)
[2023-01-02 09:40] LABS: ALBUMIN 1.2 g/dl (3.4-5.0); ANION GAP 7 mmol/L (4-13); CO2 29 mmol/L (21-32); GLUCOSE,RANDOM 72 mg/dL (74-106); MAGNESIUM 1.4 mg/dL (1.8-2.4)
[2023-01-02 09:43] LABS: CREATININE 0.6 mg/dL (0.55-1.3); SGOT/AST 31 U/L (15-37); SGPT/ALT 16 U/L (13-61)
[2023-01-02 09:45] LABS: BILIRUBIN,TOTAL 0.4 mg/dL (0.2-1); TOT PROT 4.9 g/dl (6.4-8.2)
[2023-01-02 09:46] LABS: ALK PHOS 100 U/L (45-117)
[2023-01-02 09:48] LABS: CALCIUM 6.8 mg/dL (8.5-10.1)
[2023-01-02] MEDS: NICOTINE 21 MG/24 HOURS TOPICAL PATCH TD SCH (09:58)
[2023-01-02] MEDS: levETIRAcetam 500 MG/5 ML INJECTION VIAL IVPB SCH ×2 (09:58→23:19)
[2023-01-02] MEDS: LIDOCAINE 4% PATCH TP SCH (09:59)
[2023-01-02] MEDS ORDERED: LIDOCAINE 4% PATCH TP SCH (10:00)
[2023-01-02] MEDS: VANCOMYCIN/WATER FOR INJ (PEG) 1,000 MG/200 ML BAG IVPB SCH ×2 (10:03→23:40)
[2023-01-02] MEDS: traZODone HCL 50 MG TABLET (FP) PO SCH (10:04)
[2023-01-02] MEDS: ZINC SULFATE 220 MG CAPSULE (FP) PO SCH (10:04)
[2023-01-02] MEDS: MULTIVITAMINS (DAILY MVI) TABLET (FP) PO SCH (10:05)
[2023-01-02] MEDS: GABAPENTIN 100 MG CAPSULE PO SCH (10:05)
[2023-01-02] MEDS: SODIUM CHLORIDE 1,000 ML IV SCH (10:06)
[2023-01-02] MEDS: MELATONIN 5 MG TABLETS PO SCH (23:19)
[2023-01-03] MEDS: PIPERACILLIN/TAZOB 4.5 GM 4.5 GM in DEXTROSE 5%-WATER 100 ML IVPB SCH ×3 (01:45→17:21)
[2023-01-03] MEDS: CLINDAMYCIN 900 MG PREMIX IVPB 900 MG/50 ML BAG IVPB SCH ×3 (02:24→17:57)
[2023-01-03] MEDS: SODIUM CHLORIDE 1,000 ML IV SCH ×2 (07:50→11:46)
[2023-01-03] MEDS: MULTIVITAMINS (DAILY MVI) TABLET (FP) PO SCH (09:46)
[2023-01-03] MEDS: GABAPENTIN 100 MG CAPSULE PO SCH (09:46)
[2023-01-03] MEDS: ZINC SULFATE 220 MG CAPSULE (FP) PO SCH (09:46)
[2023-01-03] MEDS: traZODone HCL 50 MG TABLET (FP) PO SCH (09:46)
[2023-01-03] MEDS: levETIRAcetam 500 MG/5 ML INJECTION VIAL IVPB SCH ×2 (09:47→22:10)
[2023-01-03] MEDS: ENOXAPARIN NA (PORCINE) 40 MG/0.4 ML DISP.SYRIN SQ SCH (09:47)
[2023-01-03] MEDS: NICOTINE 21 MG/24 HOURS TOPICAL PATCH TD SCH (09:47)
[2023-01-03 10:08] LABS: INR 1.18 (0.83-1.09); PROTHROMBIN TIME (PATIENT) 13.7 SEC (9.7-13.0)
[2023-01-03 10:13] LABS: HEMOGLOBIN 8.8 GM/dL (11.7-16.9); MCH 29.9 pg (25.7-33.7); MCHC 32.5 g/dl (32.0-35.9); MEAN CELL VOLUME 92.2 fl (80-96); MEAN PLT VOLUME 6.9 fl (7.5-11.1); PLATELET COUNT 752 10^3/uL (134-434); RBC 2.92 M/mm3 (4.00-5.60); RDW 15.5 % (11.9-15.9); WHITE BLOOD COUNT 15.3 K/mm3 (4.0-10.0)
[2023-01-03 10:37] LABS: CHLORIDE 108 mmol/L (98-107); POTASSIUM 3.6 mmol/L (3.5-5.1); SODIUM 142 mmol/L (136-145)
[2023-01-03 10:45] LABS: ALBUMIN 1.3 g/dl (3.4-5.0); ANION GAP 7 mmol/L (4-13); BLOOD UREA NITROGEN 10.6 mg/dL (7-18); CO2 28 mmol/L (21-32); CREATININE 0.6 mg/dL (0.55-1.3); GLUCOSE,RANDOM 81 mg/dL (74-106); SGPT/ALT 17 U/L (13-61)
[2023-01-03 10:46] LABS: BILIRUBIN,TOTAL 0.2 mg/dL (0.2-1)
[2023-01-03 10:48] LABS: ALK PHOS 91 U/L (45-117); MAGNESIUM 1.4 mg/dL (1.8-2.4); SGOT/AST 25 U/L (15-37)
[2023-01-03 10:51] LABS: CALCIUM 6.5 mg/dL (8.5-10.1)
[2023-01-03 10:54] LABS: ANISOCYTOSIS 1+; MACROCYTOSIS 0; TARGET CELLS 1+; TOXIC GRANULATION 1+
[2023-01-03] MEDS: LIDOCAINE 4% PATCH TP SCH (11:45)
[2023-01-03] MEDS: VANCOMYCIN/WATER FOR INJ (PEG) 1,000 MG/200 ML BAG IVPB SCH ×2 (12:23→20:55)
[2023-01-03] MEDS: oxyCODONE HCL 5 MG TABLET PO PRN (17:20)
[2023-01-03] MEDS: MELATONIN 5 MG TABLETS PO SCH (22:12)
[2023-01-04] MEDS: CLINDAMYCIN 900 MG PREMIX IVPB 900 MG/50 ML BAG IVPB SCH ×3 (02:34→18:33)
[2023-01-04] MEDS: PIPERACILLIN/TAZOB 4.5 GM 4.5 GM in DEXTROSE 5%-WATER 100 ML IVPB SCH ×3 (02:38→17:24)
[2023-01-04 09:32] LABS: INR 1.21 (0.83-1.09)
[2023-01-04 09:34] LABS: BASO % 0.3 % (0-2.0); HEMATOCRIT 29.3 % (35.4-49); HEMOGLOBIN 9.4 GM/dL (11.7-16.9); LYMPH % 12.8 % (8-40); MCH 29.3 pg (25.7-33.7); MEAN CELL VOLUME 91.3 fl (80-96); MEAN PLT VOLUME 6.6 fl (7.5-11.1); MONO % 5.2 % (3.8-10.2); NEUT % 80.7 % (42.8-82.8); PLATELET COUNT 840 10^3/uL (134-434); RBC 3.21 M/mm3 (4.00-5.60); RDW 15.2 % (11.9-15.9); WHITE BLOOD COUNT 11.7 K/mm3 (4.0-10.0)
[2023-01-04 09:56] LABS: CHLORIDE 104 mmol/L (98-107); SODIUM 141 mmol/L (136-145)
[2023-01-04 10:05] LABS: CREATININE 0.5 mg/dL (0.55-1.3)
[2023-01-04 10:06] LABS: ALBUMIN 1.5 g/dl (3.4-5.0); GLUCOSE,RANDOM 81 mg/dL (74-106); SGOT/AST 20 U/L (15-37)
[2023-01-04 10:08] LABS: ALK PHOS 93 U/L (45-117); ANION GAP 6 mmol/L (4-13); BILIRUBIN,TOTAL 0.4 mg/dL (0.2-1); BLOOD UREA NITROGEN 8.3 mg/dL (7-18); CO2 31 mmol/L (21-32); TOT PROT 5.6 g/dl (6.4-8.2)
[2023-01-04 10:09] LABS: MAGNESIUM 1.5 mg/dL (1.8-2.4)
[2023-01-04 10:24] LABS: CALCIUM 6.6 mg/dL (8.5-10.1); SGPT/ALT 18 U/L (13-61)
[2023-01-04] MEDS: GABAPENTIN 100 MG CAPSULE PO SCH (10:38)
[2023-01-04] MEDS: ZINC SULFATE 220 MG CAPSULE (FP) PO SCH (10:38)
[2023-01-04] MEDS: traZODone HCL 50 MG TABLET (FP) PO SCH (10:38)
[2023-01-04] MEDS: ENOXAPARIN NA (PORCINE) 40 MG/0.4 ML DISP.SYRIN SQ SCH (10:38)
[2023-01-04] MEDS: MULTIVITAMINS (DAILY MVI) TABLET (FP) PO SCH (10:38)
[2023-01-04] MEDS: levETIRAcetam 500 MG TABLET (FP) PO SCH ×2 (10:38→21:43)
[2023-01-04] MEDS: SODIUM CHLORIDE 1,000 ML IV SCH (10:54)
[2023-01-04] MEDS: levETIRAcetam 500 MG/5 ML INJECTION VIAL IVPB SCH (12:11)
[2023-01-04] MEDS: LIDOCAINE 4% PATCH TP SCH (12:30)
[2023-01-04] MEDS: oxyCODONE HCL 5 MG TABLET PO PRN (16:49)
[2023-01-04] MEDS: VANCOMYCIN/WATER FOR INJ (PEG) 1,000 MG/200 ML BAG IVPB SCH (20:38)
[2023-01-04] MEDS: MELATONIN 5 MG TABLETS PO SCH (21:43)
[2023-01-05] MEDS: CLINDAMYCIN 900 MG PREMIX IVPB 900 MG/50 ML BAG IVPB SCH ×2 (02:15→10:39)
[2023-01-05] MEDS: PIPERACILLIN/TAZOB 4.5 GM 4.5 GM in DEXTROSE 5%-WATER 100 ML IVPB SCH ×3 (02:15→17:52)
[2023-01-05] MEDS: oxyCODONE HCL 5 MG TABLET PO PRN ×2 (09:07→15:33)
[2023-01-05 10:16] LABS: BASO % 0.4 % (0-2.0); EOS % 0.7 % (0-4.5); HEMATOCRIT 29.9 % (35.4-49); HEMOGLOBIN 9.9 GM/dL (11.7-16.9); LYMPH % 11.7 % (8-40); MCH 29.7 pg (25.7-33.7); MCHC 33.2 g/dl (32.0-35.9); MEAN CELL VOLUME 89.6 fl (80-96); MEAN PLT VOLUME 6.7 fl (7.5-11.1); MONO % 4.4 % (3.8-10.2); NEUT % 82.8 % (42.8-82.8); PLATELET COUNT 889 10^3/uL (134-434); RBC 3.34 M/mm3 (4.00-5.60); RDW 15.6 % (11.9-15.9); WHITE BLOOD COUNT 12.8 K/mm3 (4.0-10.0)
[2023-01-05] MEDS: GABAPENTIN 100 MG CAPSULE PO SCH (10:45)
[2023-01-05] MEDS: levETIRAcetam 500 MG TABLET (FP) PO SCH ×2 (10:45→21:51)
[2023-01-05] MEDS: MULTIVITAMINS (DAILY MVI) TABLET (FP) PO SCH (10:46)
[2023-01-05] MEDS: traZODone HCL 50 MG TABLET (FP) PO SCH (10:46)
[2023-01-05] MEDS: ZINC SULFATE 220 MG CAPSULE (FP) PO SCH (10:48)
[2023-01-05] MEDS: POLYETHYLENE GLYCOL (HEALTHYLAX) 3350 17 GM PACKET PO SCH (10:53)
[2023-01-05] MEDS: ENOXAPARIN NA (PORCINE) 40 MG/0.4 ML DISP.SYRIN SQ SCH (10:54)
[2023-01-05 11:04] LABS: CHLORIDE 106 mmol/L (98-107); POTASSIUM 4.2 mmol/L (3.5-5.1); SODIUM 141 mmol/L (136-145)
[2023-01-05 11:20] LABS: ANION GAP 7 mmol/L (4-13); BLOOD UREA NITROGEN 6.3 mg/dL (7-18); CO2 27 mmol/L (21-32); GLUCOSE,RANDOM 114 mg/dL (74-106)
[2023-01-05 11:21] LABS: ALBUMIN 1.6 g/dl (3.4-5.0); MAGNESIUM 1.4 mg/dL (1.8-2.4)
[2023-01-05 11:23] LABS: SGOT/AST 19 U/L (15-37)
[2023-01-05 11:24] LABS: BILIRUBIN,TOTAL 0.5 mg/dL (0.2-1); CREATININE 0.7 mg/dL (0.55-1.3); SGPT/ALT 19 U/L (13-61); TOT PROT 5.7 g/dl (6.4-8.2)
[2023-01-05 11:26] LABS: ALK PHOS 98 U/L (45-117)
[2023-01-05 11:30] LABS: CALCIUM 6.9 mg/dL (8.5-10.1)
[2023-01-05 15:30] VITALS: BMI 18.9
[2023-01-05] MEDS: AMINO ACIDS/PROTEIN HYDROLYS 30 ML LIQUID.PKT PO SCH (17:52)
[2023-01-05] MEDS: SODIUM CHLORIDE 1,000 ML IV SCH (17:52)
[2023-01-05] MEDS: MELATONIN 5 MG TABLETS PO SCH (21:51)
[2023-01-06] MEDS: PIPERACILLIN/TAZOB 4.5 GM 4.5 GM in DEXTROSE 5%-WATER 100 ML IVPB SCH ×3 (02:27→18:17)
[2023-01-06 08:52] LABS: BASO % 0.3 % (0-2.0); EOS % 0.7 % (0-4.5); HEMATOCRIT 25.4 % (35.4-49); HEMOGLOBIN 8.7 GM/dL (11.7-16.9); LYMPH % 11.5 % (8-40); MCH 30.5 pg (25.7-33.7); MCHC 34.1 g/dl (32.0-35.9); MEAN CELL VOLUME 89.4 fl (80-96); MEAN PLT VOLUME 6.5 fl (7.5-11.1); MONO % 4.1 % (3.8-10.2); NEUT % 83.4 % (42.8-82.8); PLATELET COUNT 728 10^3/uL (134-434); RBC 2.84 M/mm3 (4.00-5.60); RDW 15.4 % (11.9-15.9); WHITE BLOOD COUNT 10.1 K/mm3 (4.0-10.0)
[2023-01-06 09:02] LABS: CHLORIDE 108 mmol/L (98-107); POTASSIUM 3.8 mmol/L (3.5-5.1); SODIUM 141 mmol/L (136-145)
[2023-01-06 09:18] LABS: ALBUMIN 1.5 g/dl (3.4-5.0); ANION GAP 5 mmol/L (4-13); BLOOD UREA NITROGEN 7.2 mg/dL (7-18); CO2 28 mmol/L (21-32); CREATININE 0.5 mg/dL (0.55-1.3); GLUCOSE,RANDOM 87 mg/dL (74-106); MAGNESIUM 1.6 mg/dL (1.8-2.4); SGPT/ALT 18 U/L (13-61)
[2023-01-06 09:19] LABS: BILIRUBIN,TOTAL 0.4 mg/dL (0.2-1); TOT PROT 5.2 g/dl (6.4-8.2)
[2023-01-06 09:21] LABS: ALK PHOS 89 U/L (45-117); CALCIUM 6.9 mg/dL (8.5-10.1); SGOT/AST 17 U/L (15-37)
[2023-01-06] MEDS: levETIRAcetam 500 MG TABLET (FP) PO SCH ×2 (10:40→21:22)
[2023-01-06] MEDS: ZINC SULFATE 220 MG CAPSULE (FP) PO SCH (10:40)
[2023-01-06] MEDS: GABAPENTIN 100 MG CAPSULE PO SCH (10:40)
[2023-01-06] MEDS: MULTIVITAMINS (DAILY MVI) TABLET (FP) PO SCH (10:41)
[2023-01-06] MEDS: ENOXAPARIN NA (PORCINE) 40 MG/0.4 ML DISP.SYRIN SQ SCH (10:41)
[2023-01-06] MEDS: POLYETHYLENE GLYCOL (HEALTHYLAX) 3350 17 GM PACKET PO SCH (10:42)
[2023-01-06] MEDS: traZODone HCL 50 MG TABLET (FP) PO SCH (10:42)
[2023-01-06] MEDS: AMINO ACIDS/PROTEIN HYDROLYS 30 ML LIQUID.PKT PO SCH ×2 (10:46→17:55)
[2023-01-06] MEDS: SODIUM CHLORIDE 1,000 ML IV SCH ×2 (10:47→22:26)
[2023-01-06] MEDS: oxyCODONE HCL 5 MG TABLET PO PRN (15:51)
[2023-01-06] MEDS: MELATONIN 5 MG TABLETS PO SCH (21:22)
[2023-01-07] MEDS: PIPERACILLIN/TAZOB 4.5 GM 4.5 GM in DEXTROSE 5%-WATER 100 ML IVPB SCH ×2 (01:22→10:06)
[2023-01-07] MEDS: oxyCODONE HCL 5 MG TABLET PO PRN (06:37)
[2023-01-07] MEDS ORDERED: traZODone HCL 50 MG TABLET (FP) PO SCH (09:07)
[2023-01-07] MEDS: GABAPENTIN 100 MG CAPSULE PO SCH (09:12)
[2023-01-07] MEDS: ENOXAPARIN NA (PORCINE) 40 MG/0.4 ML DISP.SYRIN SQ SCH (09:12)
[2023-01-07] MEDS: AMINO ACIDS/PROTEIN HYDROLYS 30 ML LIQUID.PKT PO SCH (09:12)
[2023-01-07] MEDS: MULTIVITAMINS (DAILY MVI) TABLET (FP) PO SCH (09:12)
[2023-01-07] MEDS: POLYETHYLENE GLYCOL (HEALTHYLAX) 3350 17 GM PACKET PO SCH (09:12)
[2023-01-07] MEDS: levETIRAcetam 500 MG TABLET (FP) PO SCH (09:12)
[2023-01-07] MEDS: ZINC SULFATE 220 MG CAPSULE (FP) PO SCH (09:12)
[2023-01-07 10:23] LABS: BASO % 0.5 % (0-2.0); HEMATOCRIT 26.2 % (35.4-49); HEMOGLOBIN 8.3 GM/dL (11.7-16.9); LYMPH % 12.8 % (8-40); MCH 29.4 pg (25.7-33.7); MCHC 31.9 g/dl (32.0-35.9); MEAN CELL VOLUME 92.1 fl (80-96); MEAN PLT VOLUME 6.3 fl (7.5-11.1); NEUT % 81.7 % (42.8-82.8); PLATELET COUNT 775 10^3/uL (134-434); RBC 2.84 M/mm3 (4.00-5.60); RDW 15.5 % (11.9-15.9); WHITE BLOOD COUNT 11.3 K/mm3 (4.0-10.0)
[2023-01-07 10:44] LABS: POTASSIUM 3.9 mmol/L (3.5-5.1)
[2023-01-07 10:50] LABS: ALBUMIN 1.6 g/dl (3.4-5.0); BLOOD UREA NITROGEN 7.2 mg/dL (7-18)
[2023-01-07 10:51] LABS: CALCIUM 7.2 mg/dL (8.5-10.1); MAGNESIUM 1.6 mg/dL (1.8-2.4)
[2023-01-07 10:54] LABS: CREATININE 0.5 mg/dL (0.55-1.3)
[2023-01-07 10:55] LABS: BILIRUBIN,TOTAL 0.2 mg/dL (0.2-1); TOT PROT 5.1 g/dl (6.4-8.2)
[2023-01-07] MEDS ORDERED: MAGNESIUM 2GM/50ML STERILE WATER IVPB IVPB ONE (12:00)
[2023-01-07] MEDS ORDERED: COLLAGENASE CLOSTRIDIUM HIST. 30 GRAMS TUBE TP SCH (12:15)
[2023-01-07 12:18] VITALS: PULSE 90
[2023-01-07] MEDS: SODIUM CHLORIDE 1,000 ML IV SCH (12:30)
[2023-01-07 15:29] VITALS: BP 136/82; RESP 18; TEMP 98.8
== END 2023-01-07 15:36 | DRG 853 ==
LOC: JER 13:46 → JERBED 14:54 → J8W 01-01 00:11
PROVIDERS: ADMIT Internal Medicine; ATTEND Nurse Practitioner Acute Care
PROC: 0Y6D0Z3 Detachment at Left Upper Leg, Low, Open Approach (ICD-10-PCS; principal; 2023-01-01 20:00)
DX: A41.9 Sepsis, unspecified organism (principal); A48.0 Gas gangrene; L89.153 Pressure ulcer of sacral region, stage 3; E43 Unspecified severe protein-calorie malnutrition; L03.116 Cellulitis of left lower limb; I69.354 Hemiplegia and hemiparesis following cerebral infarction affecting left non-dominant side; Z68.1 Body mass index [BMI] 19.9 or less, adult; N17.9 Acute kidney failure, unspecified; G40.909 Epilepsy, unspecified, not intractable, without status epilepticus; R65.20 Severe sepsis without septic shock; E87.6 Hypokalemia; D64.9 Anemia, unspecified
CPT/HCPCS: 0241U-QW; 36415; 71045-TC-FY; 73590-TC-LT-FY; 73630-TC-LT; 80053; 81003; 82550; 82553; 82803; 83605; 83735; 84100; 84484; 85025; 85610; 85651; 85730; 86140; 86922; 87040; 87070; 87076; 87081; 87086; 87205; 87635; 88307-TC; 88311-TC; 93005; 93010; 93971-TC; 94760; 97162-GP; 99285-25; G0480